=== PATIENT | female | born 1990 | race Caucasian/White ===

== ENCOUNTER → 2016-09-07 | Outpatient (REF) | payer OTHER ==
[~2016-09-07] MED LIST: /MOM400 PO; ACET50TA PO; IBUP-1114 PO; MOTRIN PO; PERC5TAB PO; PRENTAB56 PO; PRENTAB9 PO; TYLE325T5 PO; TYLENOL PO
== END ==
LOC: M SFHCPLAZ 11:11
PROVIDERS: ATTEND Family Medicine
DX: F41.1 Generalized anxiety disorder (principal)

== ENCOUNTER → 2016-10-09 | Outpatient (REF) | payer OTHER ==
[2016-10-09 16:06] LABS: ANION GAP 5 MEQ/L (8-16); BLOOD UREA NITROGEN 17 MG/DL (7-18); CALCIUM LEVEL 8.7 MG/DL (8.5-10.1); CARBON DIOXIDE LEVEL 30 MEQ/L (21-32); CHLORIDE LEVEL 106 MEQ/L (98-107); CREATININE FOR GFR 0.63 MG/DL (0.55-1.02); GLOMERULAR FILTRATION RATE > 60.0 (>60); GLUCOSE, FASTING 81 MG/DL (70-105); POTASSIUM SERUM 3.8 MEQ/L (3.5-5.1); SODIUM LEVEL 141 MEQ/L (136-145)
== END ==
LOC: M SFHCPLAZ 13:38
DX: T88.7XXA Unspecified adverse effect of drug or medicament, initial encounter (principal)

== ENCOUNTER → 2016-10-29 | Outpatient (REF) | payer OTHER ==
[2016-10-29 18:15] LABS: ANION GAP 5 MEQ/L (8-16); BLOOD UREA NITROGEN 14 MG/DL (7-18); CARBON DIOXIDE LEVEL 30 MEQ/L (21-32); CHLORIDE LEVEL 107 MEQ/L (98-107); CREATININE FOR GFR 0.67 MG/DL (0.55-1.02); GLOMERULAR FILTRATION RATE > 60.0 (>60); GLUCOSE, FASTING 78 MG/DL (70-105); POTASSIUM SERUM 3.8 MEQ/L (3.5-5.1); SODIUM LEVEL 142 MEQ/L (136-145)
[2016-11-03 14:18] LABS: HEPATITIS C QUANTITATION HCV Not Detected IU/mL (.)
== END ==
LOC: M SFHCPLAZ 15:44
DX: T88.7XXA Unspecified adverse effect of drug or medicament, initial encounter (principal); A64 Unspecified sexually transmitted disease; X58.XXXA Exposure to other specified factors, initial encounter; Y92.9 Unspecified place or not applicable; Y93.9 Activity, unspecified

== ENCOUNTER 2016-11-23 00:05 | Emergency (ER) | payer OTHER ==
[~2016-11-23] VITALS: Ht 165.1 cm; Wt 55.5 kg
[2016-11-23 00:13] VITALS: BP 115/69
[2016-11-23] MEDS ORDERED: FLUC150T (00:20)
[2016-11-23] MEDS ORDERED: METR1TAB66 (00:20)
[2016-11-23] MEDS ORDERED: DIFL150T PO (00:55)
[2016-11-23] MEDS ORDERED: HYDR-3713 PO (00:55)
[2016-11-23] MEDS ORDERED: NORCO 5/325MG TABLET (BULK FOR ED) PO ONE (01:00)
--- NOTE | 2016-11-26 09:47 | REP ---
Clinical: Trauma. Technique: AP, lateral, bilateral oblique views of the right foot. Findings: There is a transverse nondisplaced Seo fracture at the base of the fifth metatarsal bone. Remainder examination appears normal. Impression: Nondisplaced transverse fracture at the base of the fifth metatarsal bone. Signed by Jason Umana MD 11/23/2016 07:47 A
== END 2016-11-23 01:09 | disposition home or self-care (01) ==
LOC: M ED 01:03
DX: S92.354A Nondisplaced fracture of fifth metatarsal bone, right foot, initial encounter for closed fracture (principal); X50.9XXA Other and unspecified overexertion or strenuous movements or postures, initial encounter; Y92.019 Unspecified place in single-family (private) house as the place of occurrence of the external cause; Y93.01 Activity, walking, marching and hiking; Y99.8 Other external cause status; F17.210 Nicotine dependence, cigarettes, uncomplicated; Z79.899 Other long term (current) drug therapy

== ENCOUNTER 2016-12-03 23:47 | Emergency (ER) | payer OTHER ==
[~2016-12-03] VITALS: Ht 167.6 cm; Wt 54.6 kg
[~2016-12-03 23:47] MED LIST changes: +DIFL150T PO; +FLUC150T; +HYDR-3713 PO; +METR1TAB66
[2016-12-03] MEDS ORDERED: MELO15TA4 (23:59)
[2016-12-03] MEDS ORDERED: TYLE325C PO (23:59)
[2016-12-03] MEDS ORDERED: CITA10TA5 (23:59)
[2016-12-04] MEDS ORDERED: KETOROLAC 60 MG/2 ML VIAL (J1885) IM ONE (02:45)
[2016-12-04] MEDS ORDERED: KETOROLAC 30 MG/ML VIAL (J1885) As Ordered ONE (02:46)
[2016-12-04] MEDS: MORPHINE 2 MG/ML 1ML SYRINGE IM ONE ×2 (03:15→03:44)
[2016-12-04 03:46] VITALS: BP 128/78
--- NOTE | 2016-12-04 07:42 | REP ---
Clinical: Trauma. Technique: AP, lateral views of the right knee. Findings: The osseous structures and joint spaces are intact and normal. There is no evidence for acute fracture or dislocation. No joint effusion is appreciated. Surrounding soft tissues are unremarkable. No subcutaneous emphysema or radiodense foreign body. Impression: Normal examination. No acute fracture or dislocation. Signed by Jason Umana MD 12/04/2016 07:34 A
--- NOTE | 2016-12-04 07:47 | REP ---
Clinical: Trauma Technique: AP, lateral, coned-down views of the lumbar spine. Findings: Three views of the lumbosacral spine demonstrate satisfactory alignment and lordosis without acute fracture / compression injury or subluxation. Chronic spondylolysis at L5 cannot be excluded. Impression: Chronic spondylolysis at L5 cannot be excluded. No acute fracture / compression injury or subluxation. Signed by Jason Umana MD 12/04/2016 07:38 A
--- NOTE | 2016-12-04 08:09 | REP ---
Clinical: Trauma with thoracic pain. Technique: AP, lateral, and swimmers views. Findings: Alignment and kyphosis is maintained. Vertebral bodies intact. No acute fracture / compression injury or subluxation. No degenerative changes. Paravertebral soft tissues are normal. Impression: Normal thoracic spine series. Signed by Jason Umana MD 12/04/2016 08:00 A
== END 2016-12-04 03:48 | disposition home or self-care (01) ==
LOC: M ED 23:47
DX: S89.91XA Unspecified injury of right lower leg, initial encounter (principal); W19.XXXA Unspecified fall, initial encounter; Y92.099 Unspecified place in other non-institutional residence as the place of occurrence of the external cause; Y93.89 Activity, other specified; Y99.9 Unspecified external cause status

== ENCOUNTER → 2016-12-19 | Outpatient (CLI) | payer OTHER ==
[~2016-12-19] MED LIST changes: +CITA10TA5; +MELO15TA4; +SERT-155 PO; +TYLE325C PO
--- NOTE | 2016-12-19 14:50 | REP ---
RIGHT FOOT: Four views of the right foot are performed. There is a nondisplaced fracture at the base of the 5th metatarsal which is unchanged in position compared to prior study of 11/23/2016. No new fracture or dislocation is seen. Signed by Rishi Smith MD 12/19/2016 03:23 P
== END ==
LOC: M RAD 12:34
PROVIDERS: ATTEND Physician Assistant
DX: S92.354D Nondisplaced fracture of fifth metatarsal bone, right foot, subsequent encounter for fracture with routine healing (principal); X58.XXXD Exposure to other specified factors, subsequent encounter; Y99.8 Other external cause status; Y93.9 Activity, unspecified; Y92.9 Unspecified place or not applicable

== ENCOUNTER 2017-03-04 20:59 | Emergency (ER) | payer OTHER ==
[~2017-03-04] VITALS: Ht 165.1 cm; Wt 54.5 kg
[~2017-03-04 20:59] MED LIST changes: -SERT-155 PO
[2017-03-04] MEDS ORDERED: SERT-155 PO (21:23)
[2017-03-04] MEDS ORDERED: IBUP-1114 PO (21:23)
[2017-03-05] MEDS ORDERED: NORCO 5/325MG TABLET (BULK FOR ED) PO ONE
[2017-03-05 00:19] VITALS: BP 106/57
--- NOTE | 2017-03-05 08:08 | REP ---
Left great toe four views : There is no fracture or dislocation. Mineralization and joint spaces are normal. There are no calcifications or foreign bodies. Impression: Negative left great toe . Signed by Rishi Virk MD 03/05/2017 07:59 A
== END 2017-03-05 00:20 | disposition home or self-care (01) ==
LOC: M ED 20:59
DX: S90.412A Abrasion, left great toe, initial encounter (principal); X58.XXXA Exposure to other specified factors, initial encounter; Y92.89 Other specified places as the place of occurrence of the external cause; Y93.89 Activity, other specified; Y99.8 Other external cause status; Z79.899 Other long term (current) drug therapy

== ENCOUNTER → 2017-04-27 | Outpatient (REF) | payer OTHER ==
[~2017-04-27] MED LIST changes: +GABA-279 PO; +NAPR500T PO; +SERT-155 PO
== END ==
LOC: M LAB REF 15:21
PROVIDERS: ATTEND Physician Assistant
DX: J02.9 Acute pharyngitis, unspecified (principal)

== ENCOUNTER → 2017-04-29 | Outpatient (CLI) | payer OTHER ==
--- NOTE | 2017-04-29 13:23 | REP ---
Clinical: Cervicalgia . Technique: AP, lateral, flexion/extension, bilateral oblique, and open-mouth views. Findings: Alignment and lordosis is maintained. There is no evidence for acute fracture / compression injury or subluxation. No significant degenerative changes are appreciated. Oblique views demonstrate patent neural foramen. Open mouth view demonstrates normal C1-C2 articulation and odontoid process. Impression: Normal cervical spine series. Signed by Jason Umana MD 04/29/2017 10:46 A
== END ==
LOC: M LRY 09:44
PROVIDERS: ATTEND Physician Assistant
DX: M54.2 Cervicalgia (principal)

== ENCOUNTER 2017-05-04 19:33 | Emergency (ER) | payer OTHER ==
[~2017-05-04] VITALS: Ht 165.1 cm; Wt 59.0 kg
[~2017-05-04 19:33] MED LIST changes: -GABA-279 PO; -NAPR500T PO
[2017-05-04] MEDS ORDERED: GABAPENTIN 100 MG CAP PO ONE (22:15)
[2017-05-04] MEDS ORDERED: NAPROXEN 250 MG TAB PO ONE (22:15)
--- NOTE | 2017-05-04 22:50 | REPUSA ---
Clinical statement: Pain, swelling. Findings: Venous Doppler imaging of the left upper extremity was performed. The internal jugular vein compresses normally and demonstrates normal color Doppler flow. Normal venous wave forms are seen wi thin the subclavian vein. The axillary, basilic and brachial veins compress normally and demonstrate normal color Doppler flow. Normal augmentation is seen. Impression: No evidence of deep vein thrombosis in the left upper extremity.
[2017-05-04] MEDS ORDERED: GABA-279 PO (23:13)
[2017-05-04] MEDS ORDERED: NAPR500T PO (23:13)
[2017-05-04 23:35] VITALS: BP 111/76
--- NOTE | 2017-05-05 05:45 | REP ---
BILATERAL HAND: CLINICAL: Pain. TECHNIQUE: AP, lateral, bilateral oblique views of the right and left hand. FINDINGS: No obvious acute fracture or dislocation. Skeletal structures, joint spaces and surrounding soft tissues appear relatively symmetric and normal bilaterally. No significant arthritic degenerative changes are appreciated. IMPRESSION: Normal bilateral hand radiograph series. Signed by Jason Umana MD 05/10/2017 12:05 A
== END 2017-05-04 23:40 | disposition home or self-care (01) ==
LOC: M ED 19:33
DX: G90.512 Complex regional pain syndrome I of left upper limb (principal); F17.210 Nicotine dependence, cigarettes, uncomplicated

== ENCOUNTER → 2017-06-17 | Outpatient (REF) | payer OTHER | LOC: M LAB REF 09:39 | DX: R82.79 Other abnormal findings on microbiological examination of urine (principal) ==

== ENCOUNTER → 2017-06-25 | Outpatient (REF) | payer OTHER ==
[2017-06-25 21:29] LABS: MEAN CORPUSCULAR HEMOGLOBIN 30.4 pg (27.0-33.0); MEAN CORPUSCULAR HGB CONC 34.2 g/dl (32.0-36.5); MEAN CORPUSCULAR VOLUME 88.8 fl (80.0-96.0); PLATELET COUNT, AUTOMATED 205 10^3/uL (150-450); RED BLOOD COUNT 4.28 10^6/uL (4.00-5.40); RED CELL DISTRIBUTION WIDTH 12.4 % (11.5-14.5); WHITE BLOOD COUNT 6.3 10^3/uL (4.0-10.0)
[2017-06-25 21:41] LABS: ALBUMIN/GLOBULIN RATIO 1.33 (1.00-1.93); ALKALINE PHOSPHATASE 67 U/L (45-117); ALT/SGPT 24 U/L (12-78); ANION GAP 5 MEQ/L (8-16); AST/SGOT 12 U/L (7-37); BILIRUBIN,TOTAL 1.4 MG/DL (0.2-1.0); BLOOD UREA NITROGEN 15 MG/DL (7-18); CALCIUM LEVEL 8.6 MG/DL (8.5-10.1); CARBON DIOXIDE LEVEL 29 MEQ/L (21-32); CHLORIDE LEVEL 107 MEQ/L (98-107); CREATININE FOR GFR 0.59 MG/DL (0.55-1.02); GLOMERULAR FILTRATION RATE > 60.0 (>60); GLUCOSE, FASTING 75 MG/DL (70-100); HCG, SERUM QUANTITATIVE < 1.0 MIU/ML; POTASSIUM SERUM 3.9 MEQ/L (3.5-5.1); SODIUM LEVEL 141 MEQ/L (136-145)
== END ==
LOC: M SFHCLERA 12:34
DX: R31.9 Hematuria, unspecified (principal); R93.0 Abnormal findings on diagnostic imaging of skull and head, not elsewhere classified

== ENCOUNTER → 2017-06-25 | Outpatient (CLI) | payer OTHER | LOC: M LRY 12:44 | DX: R31.9 Hematuria, unspecified (principal) | CPT/HCPCS: 74018 ==

== ENCOUNTER 2017-06-27 07:24 | Emergency (ER) | payer OTHER ==
[2017-06-27 08:19] LABS: KETONE, URINE AUTO RFX NEGATIVE (NEGATIVE); LEUKOCYTE ESTERASE UR AUTO RFX TRACE (NEGATIVE); MUCUS, URINE RFX SMALL (NEGATIVE); NITRITE, URINE AUTO RFX NEGATIVE (NEGATIVE); RBC, URINE AUTO RFX 2 /HPF (0-3); SPECIFIC GRAVITY UR AUTO RFX 1.008 (1.002-1.035); SQUAM EPITHELIAL CELL UR AURFX 0 /HPF (0-6); WBC, URINE AUTO RFX 1 /HPF (0-3)
[2017-06-27] MEDS: KETOROLAC 60 MG/2 ML VIAL (J1885) IM (08:34)
== END 2017-06-27 09:51 | disposition home or self-care (01) ==
LOC: M ED 07:24
DX: G89.29 Other chronic pain (principal); M54.5 Low back pain; F41.9 Anxiety disorder, unspecified
CPT/HCPCS: J1885

== ENCOUNTER → 2017-07-13 | Outpatient (CLI) | payer OTHER | LOC: M RAD 10:34 | DX: I67.1 Cerebral aneurysm, nonruptured (principal) | CPT/HCPCS: 70551 ==

== ENCOUNTER → 2017-07-26 | Outpatient (CLI) | payer OTHER ==
[2017-07-26 19:05] LABS: FREE T4 0.92 NG/DL (0.76-1.46)
[2017-07-26 19:15] LABS: FOLLICLE STIMULATING HORMONE 4.5 mIU/mL; LUTEINIZING HORMONE 9.3 mIU/mL; PROLACTIN 5.3 NG/ML
[2017-07-26 19:15] LABS: PROGESTERONE 22.7 NG/ML
[2017-07-29 00:07] LABS: TESTOSTERONE FREE (DIRECT) 1.1 pg/mL (0.0-4.2)
== END ==
LOC: M SMT 15:54
DX: N93.8 Other specified abnormal uterine and vaginal bleeding (principal)
CPT/HCPCS: 83001

== ENCOUNTER 2017-09-24 09:42 | Day surgery (SDC) | payer OTHER ==
[2017-09-24] MEDS ORDERED: GLYCOPYRROLATE INJ 0.2 MG/ML 2 ML VIAL As Ordered (09:45)
[2017-09-24] MEDS ORDERED: LIDOCAINE 2% INJ 100 MG/5 ML SDV (FOR ANES.) As Ordered (09:45)
[2017-09-24] MEDS ORDERED: KETOROLAC 60 MG/2 ML VIAL (J1885) As Ordered (09:45)
[2017-09-24] MEDS ORDERED: PROPOFOL 200 MG/20 ML VIAL As Ordered (09:45)
[2017-09-24] MEDS ORDERED: ONDANSETRON 4MG/2ML VIAL (J2405) As Ordered (09:45)
[2017-09-24] MEDS ORDERED: dexameTHASONE 4 MG/ML 1ML VIAL (J1100) As Ordered (09:45)
[2017-09-24] MEDS ORDERED: ROCURONIUM BROMIDE 50 MG/5 ML VIAL As Ordered (09:45)
[2017-09-24] MEDS ORDERED: NEOSTIGMINE 10 MG/10 ML VIAL (J2710) As Ordered (09:45)
[2017-09-24] MEDS ORDERED: HYDROmorphone HCL 2 MG/ML 1ML VIAL (J1170) As Ordered (09:46)
[2017-09-24] MEDS ORDERED: fentaNYL 100 MCG/2 ML INJECTION (J3010) As Ordered (09:46)
[2017-09-24] MEDS ORDERED: MIDAZOLAM INJ 2 MG/2 ML VIAL (J2250) As Ordered (09:46)
[2017-09-24] MEDS ORDERED: LIDOCAINE 1% MDV 20ML VIAL SQ (10:00)
[2017-09-24 10:16] LABS: HEMATOCRIT 39.2 % (36.0-47.0); HEMOGLOBIN 13.5 g/dl (12.0-15.5); MEAN CORPUSCULAR HEMOGLOBIN 30.1 pg (27.0-33.0); MEAN CORPUSCULAR HGB CONC 34.4 g/dl (32.0-36.5); MEAN CORPUSCULAR VOLUME 87.5 fl (80.0-96.0); PLATELET COUNT, AUTOMATED 161 10^3/uL (150-450); RED BLOOD COUNT 4.48 10^6/uL (4.00-5.40); RED CELL DISTRIBUTION WIDTH 12.4 % (11.5-14.5); WHITE BLOOD COUNT 6.8 10^3/uL (4.0-10.0)
[2017-09-24 10:22] LABS: CONTROL LINE UCG INT CTR LINE PRESENT; URINE PREG TEST NEGATIVE (NEGATIVE)
[2017-09-24] MEDS: LR 1,000 ML IV ×3 (10:31→18:45)
[2017-09-24] MEDS: BUPIVACAINE HCL 0.25% 10 ML VIAL As Ordered (14:33)
[2017-09-24] MEDS: CEFAZOLIN SOD 1 GM in APPROPRIATE DILUENT 1 EA IV (14:54)
[2017-09-24] MEDS: METHYLENE BLUE 0.5% (5MG/ML) 10 ML AMP (PROVAYBLUE)(Q9968 PER 1MG) As Ordered (15:55)
[2017-09-24] MEDS: ONDANSETRON 4MG/2ML VIAL (J2405) IV (16:50)
[2017-09-24] MEDS: fentaNYL 100 MCG/2 ML INJECTION (J3010) IV ×4 (16:50→17:13)
[2017-09-24] MEDS ORDERED: PERCOCET 5MG/325MG TAB PO (17:00)
[2017-09-24] MEDS ORDERED: METOCLOPRAMIDE INJ 10MG/2ML VIAL (J2765) As Ordered (17:32)
[2017-09-24] MEDS: METOCLOPRAMIDE INJ 10MG/2ML VIAL (J2765) IV (17:45)
[2017-09-24] MEDS: HYDROmorphone HCL 1 MG/ML SYRINGE (J1170) IV ×2 (17:55→18:00)
[2017-09-24] MEDS: MORPHINE 4 MG/ML 1ML VIAL/SYRINGE (J2270) IV (18:45)
[2017-09-24] MEDS: DOCUSATE SODIUM 100 MG CAP PO (21:03)
[2017-09-24] MEDS: KETOROLAC 30 MG/ML VIAL (J1885) IV (21:04)
[2017-09-24] MEDS: PERCOCET 5MG/325MG TAB PO (22:00)
[2017-09-25] MEDS: MORPHINE 4 MG/ML 1ML VIAL/SYRINGE (J2270) IV ×3 (01:29→16:27)
[2017-09-25] MEDS: LR 1,000 ML IV ×2 (01:41→22:30)
[2017-09-25] MEDS: PERCOCET 5MG/325MG TAB PO ×4 (02:21→22:47)
[2017-09-25] MEDS: KETOROLAC 30 MG/ML VIAL (J1885) IV (05:25)
[2017-09-25] MEDS: DOCUSATE SODIUM 100 MG CAP PO ×2 (07:26→21:00)
[2017-09-25] MEDS ORDERED: SIMETHICONE 80 MG CHEW TAB PO (08:45)
[2017-09-25] MEDS: SIMETHICONE 80 MG CHEW TAB PO ×2 (09:09→14:37)
[2017-09-25] MEDS: ONDANSETRON 4MG/2ML VIAL (J2405) IV ×2 (09:41→16:21)
[2017-09-25 09:54] LABS: HEMATOCRIT 22.6 % (36.0-47.0); MEAN CORPUSCULAR HEMOGLOBIN 30.9 pg (27.0-33.0); MEAN CORPUSCULAR VOLUME 88.3 fl (80.0-96.0); PLATELET COUNT, AUTOMATED 152 10^3/uL (150-450); RED BLOOD COUNT 2.56 10^6/uL (4.00-5.40); RED CELL DISTRIBUTION WIDTH 12.4 % (11.5-14.5); WHITE BLOOD COUNT 16.1 10^3/uL (4.0-10.0)
[2017-09-25 10:29] LABS: HEMOGLOBIN 7.9 g/dl (12.0-15.5)
[2017-09-25] MEDS ORDERED: IBUPROFEN 800 MG TAB PO (11:30)
[2017-09-25] MEDS: diphenhydrAMINE 25 MG CAP PO (12:01)
[2017-09-25] MEDS: NS 1,000 ML IV (14:05)
[2017-09-25 17:48] LABS: IMMEDIATE SPIN CROSSMATCH 1 2
[2017-09-25 19:22] LABS: HEMATOCRIT 24.7 % (36.0-47.0); HEMOGLOBIN 8.8 g/dl (12.0-15.5); MEAN CORPUSCULAR HEMOGLOBIN 31.3 pg (27.0-33.0); MEAN CORPUSCULAR HGB CONC 35.6 g/dl (32.0-36.5); MEAN CORPUSCULAR VOLUME 87.9 fl (80.0-96.0); PLATELET COUNT, AUTOMATED 108 10^3/uL (150-450); RED BLOOD COUNT 2.81 10^6/uL (4.00-5.40); RED CELL DISTRIBUTION WIDTH 13.3 % (11.5-14.5); WHITE BLOOD COUNT 11.3 10^3/uL (4.0-10.0)
[2017-09-25 19:31] LABS: INR 1.22; PARTIAL THROMBOPLASTIN TIME 25.7 SECONDS (26.8-37.9); PROTHROMBIN TIME 15.7 SECONDS (12.4-14.5)
[2017-09-25 19:32] LABS: FIBRINOGEN 173 MG/DL (221-452)
[2017-09-25] MEDS: ceFAZolin 1GM INJ (J0690 PER 500MG) As Ordered (20:45)
[2017-09-25] MEDS: BUPIVACAINE HCL 0.25% 30 ML VIAL As Ordered (21:02)
[2017-09-25] MEDS ORDERED: MIDAZOLAM INJ 2 MG/2 ML VIAL (J2250) As Ordered (21:18)
[2017-09-25] MEDS ORDERED: KETOROLAC 60 MG/2 ML VIAL (J1885) As Ordered (21:18)
[2017-09-25] MEDS ORDERED: LIDOCAINE 2% INJ 100 MG/5 ML SDV (FOR ANES.) As Ordered (21:18)
[2017-09-25] MEDS ORDERED: PROPOFOL 200 MG/20 ML VIAL As Ordered (21:18)
[2017-09-25] MEDS ORDERED: fentaNYL 100 MCG/2 ML INJECTION (J3010) As Ordered ×2 (21:18→22:28)
[2017-09-25] MEDS ORDERED: ROCURONIUM BROMIDE 50 MG/5 ML VIAL As Ordered (21:18)
[2017-09-25] MEDS ORDERED: ONDANSETRON 4MG/2ML VIAL (J2405) As Ordered ×2 (21:18→22:50)
[2017-09-25] MEDS ORDERED: dexameTHASONE 4 MG/ML 1ML VIAL (J1100) As Ordered (21:18)
[2017-09-25] MEDS ORDERED: SUGAMMADEX SODIUM 500 MG/5 ML VIAL (BRIDION) As Ordered (21:18)
[2017-09-25] MEDS ORDERED: MEPERIDINE INJ 25 MG/ML VIAL (J2175) As Ordered (22:25)
[2017-09-25] MEDS: MEPERIDINE INJ 25 MG/ML VIAL (J2175) IV ×2 (22:25→22:37)
[2017-09-25] MEDS: fentaNYL 100 MCG/2 ML INJECTION (J3010) IV ×4 (22:28→22:49)
[2017-09-25] MEDS ORDERED: ONDANSETRON 4MG/2ML VIAL (J2405) IV ×2 (22:30→23:15)
[2017-09-25] MEDS ORDERED: MORPHINE 10 MG/ML 1ML VIAL (J2270) IV (22:30)
[2017-09-25 22:44] LABS: HEMATOCRIT 24.7 % (36.0-47.0); HEMOGLOBIN 8.5 g/dl (12.0-15.5); MEAN CORPUSCULAR HEMOGLOBIN 31.3 pg (27.0-33.0); MEAN CORPUSCULAR HGB CONC 34.4 g/dl (32.0-36.5); MEAN CORPUSCULAR VOLUME 90.8 fl (80.0-96.0); RED BLOOD COUNT 2.72 10^6/uL (4.00-5.40); RED CELL DISTRIBUTION WIDTH 13.5 % (11.5-14.5); WHITE BLOOD COUNT 9.8 10^3/uL (4.0-10.0)
[2017-09-25 22:45] LABS: PLATELET COUNT, AUTOMATED 93 10^3/uL (150-450)
[2017-09-25 22:46] LABS: IMMATURE PLATELET FRACTION % 5.8 % (0.0-9.6)
[2017-09-25] MEDS ORDERED: PERCOCET 5MG/325MG TAB As Ordered (22:47)
[2017-09-25] MEDS ORDERED: PERCOCET 5MG/325MG TAB PO (23:15)
[2017-09-26] MEDS: LR 1,000 ML IV ×4 (00:01→23:15)
[2017-09-26] MEDS: KETOROLAC 30 MG/ML VIAL (J1885) IV (01:08)
[2017-09-26] MEDS: PERCOCET 5MG/325MG TAB PO ×4 (04:09→16:21)
[2017-09-26 06:36] LABS: HEMATOCRIT 22.2 % (36.0-47.0); HEMOGLOBIN 7.6 g/dl (12.0-15.5); MEAN CORPUSCULAR HGB CONC 34.2 g/dl (32.0-36.5); MEAN CORPUSCULAR VOLUME 90.6 fl (80.0-96.0); RED BLOOD COUNT 2.45 10^6/uL (4.00-5.40); RED CELL DISTRIBUTION WIDTH 13.5 % (11.5-14.5); WHITE BLOOD COUNT 8.8 10^3/uL (4.0-10.0)
[2017-09-26] MEDS: MORPHINE 4 MG/ML 1ML VIAL/SYRINGE (J2270) IV ×3 (06:43→19:38)
[2017-09-26 06:48] LABS: PLATELET COUNT, AUTOMATED 88 10^3/uL (150-450)
[2017-09-26 06:55] LABS: ALBUMIN 2.6 GM/DL (3.2-5.2); ALBUMIN/GLOBULIN RATIO 1.18 (1.00-1.93); ALKALINE PHOSPHATASE 40 U/L (45-117); ALT/SGPT 11 U/L (12-78); ANION GAP 4 MEQ/L (8-16); AST/SGOT 13 U/L (7-37); BILIRUBIN,TOTAL 2.6 MG/DL (0.2-1.0); BLOOD UREA NITROGEN 10 MG/DL (7-18); CALCIUM LEVEL 7.5 MG/DL (8.5-10.1); CARBON DIOXIDE LEVEL 29 MEQ/L (21-32); CHLORIDE LEVEL 108 MEQ/L (98-107); CREATININE FOR GFR 0.58 MG/DL (0.55-1.30); GLOMERULAR FILTRATION RATE > 60.0 (>60); GLUCOSE, FASTING 94 MG/DL (70-100); SODIUM LEVEL 141 MEQ/L (136-145); TOTAL PROTEIN 4.8 GM/DL (6.4-8.2)
[2017-09-26] MEDS: SIMETHICONE 80 MG CHEW TAB PO ×2 (08:20→16:19)
[2017-09-26] MEDS: DOCUSATE SODIUM 100 MG CAP PO ×2 (08:22→19:39)
[2017-09-26] MEDS ORDERED: NS 1,000 ML IV (09:09)
[2017-09-26 10:07] LABS: IMMEDIATE SPIN CROSSMATCH 1 1
[2017-09-26] MEDS: IBUPROFEN 800 MG TAB PO ×2 (11:03→19:39)
[2017-09-26] MEDS: ALPRAZolam 0.25 MG TAB PO ×2 (12:34→20:25)
[2017-09-27] MEDS: PERCOCET 5MG/325MG TAB PO ×3 (00:52→09:55)
[2017-09-27 06:51] LABS: HEMATOCRIT 23.3 % (36.0-47.0); HEMOGLOBIN 7.9 g/dl (12.0-15.5); MEAN CORPUSCULAR HEMOGLOBIN 31.2 pg (27.0-33.0); MEAN CORPUSCULAR HGB CONC 33.9 g/dl (32.0-36.5); MEAN CORPUSCULAR VOLUME 92.1 fl (80.0-96.0); RED BLOOD COUNT 2.53 10^6/uL (4.00-5.40); RED CELL DISTRIBUTION WIDTH 13.8 % (11.5-14.5)
[2017-09-27 06:54] LABS: PLATELET COUNT, AUTOMATED 80 10^3/uL (150-450)
[2017-09-27] MEDS: LR 1,000 ML IV (07:15)
[2017-09-27] MEDS: DOCUSATE SODIUM 100 MG CAP PO (08:35)
[2017-09-27] MEDS: IBUPROFEN 800 MG TAB PO (08:36)
== END 2017-09-27 10:30 | disposition home or self-care (01) ==
LOC: M SDC 09:42 → M PED 09-25 23:55 → M SDC 09-27 10:30 → M OBS 18:30
DX: R10.2 Pelvic and perineal pain (principal); N94.6 Dysmenorrhea, unspecified; N72 Inflammatory disease of cervix uteri; K66.1 Hemoperitoneum; F17.210 Nicotine dependence, cigarettes, uncomplicated
CPT/HCPCS: 58571

== ENCOUNTER → 2017-09-28 | Outpatient (CLI) | payer OTHER ==
[2017-09-28 11:20] LABS: HEMOGLOBIN 8.6 g/dl (12.0-15.5); MEAN CORPUSCULAR HEMOGLOBIN 30.8 pg (27.0-33.0); MEAN CORPUSCULAR HGB CONC 33.1 g/dl (32.0-36.5); MEAN CORPUSCULAR VOLUME 93.2 fl (80.0-96.0); PLATELET COUNT, AUTOMATED 109 10^3/uL (150-450); RED BLOOD COUNT 2.79 10^6/uL (4.00-5.40); RED CELL DISTRIBUTION WIDTH 13.8 % (11.5-14.5); WHITE BLOOD COUNT 6.8 10^3/uL (4.0-10.0)
== END ==
LOC: M SMT 09:23
DX: D64.9 Anemia, unspecified (principal)
CPT/HCPCS: 85027

== ENCOUNTER → 2017-10-04 | Outpatient (REF) | payer OTHER | LOC: M LAB REF 16:57 | DX: R30.0 Dysuria (principal) ==

== ENCOUNTER → 2018-03-24 | Outpatient (CLI) | payer OTHER | LOC: M RAD 11:12 | DX: N83.292 Other ovarian cyst, left side (principal) | CPT/HCPCS: 76856 ==

== ENCOUNTER 2018-03-31 00:53 | Emergency (ER) | payer OTHER ==
[2018-03-31] MEDS: NS 1,000 ML IV (01:45)
[2018-03-31 01:57] LABS: BASO % 0.5 % (0.0-1.0); EOS # 0.3 10^3/uL (0.0-0.50); HEMATOCRIT 35.3 % (36.0-47.0); HEMOGLOBIN 12.2 g/dl (12.0-15.5); IMMATURE GRANULOCYTE % 0.3 % (0-3.0); MEAN CORPUSCULAR HEMOGLOBIN 30.9 pg (27.0-33.0); MEAN CORPUSCULAR HGB CONC 34.6 g/dl (32.0-36.5); MEAN CORPUSCULAR VOLUME 89.4 fl (80.0-96.0); MONO # 0.8 10^3/uL (0.0-0.8); MONO % 10.9 % (0.0-5.0); NEUTROPHILS # 3.3 10^3/uL (1.8-7.7); NEUTROPHILS % 44.3 % (36.0-66.0); PLATELET COUNT, AUTOMATED 171 10^3/uL (150-450); RED BLOOD COUNT 3.95 10^6/uL (4.00-5.40); RED CELL DISTRIBUTION WIDTH 12.3 % (11.5-14.5); WHITE BLOOD COUNT 7.4 10^3/uL (4.0-10.0)
[2018-03-31] MEDS: ONDANSETRON 4MG/2ML VIAL (J2405) IV (01:57)
[2018-03-31] MEDS: MORPHINE 4 MG/ML 1ML VIAL/SYRINGE (J2270) IV ×2 (02:05→05:14)
[2018-03-31] MEDS: GASTROGRAFIN SOLUTION 30ML PO ×2 (02:12→02:38)
[2018-03-31 02:15] LABS: KETONE, URINE AUTO RFX NEGATIVE (NEGATIVE); LEUKOCYTE ESTERASE UR AUTO RFX NEGATIVE (NEGATIVE); MUCUS, URINE RFX LARGE (NEGATIVE); NITRITE, URINE AUTO RFX NEGATIVE (NEGATIVE); RBC, URINE AUTO RFX 3 /HPF (0-3); SPECIFIC GRAVITY UR AUTO RFX 1.026 (1.002-1.035); SQUAM EPITHELIAL CELL UR AURFX 6 /HPF (0-6); WBC, URINE AUTO RFX 2 /HPF (0-3)
[2018-03-31 02:22] LABS: ALBUMIN 3.5 GM/DL (3.2-5.2); ALBUMIN/GLOBULIN RATIO 1.46 (1.00-1.93); ALKALINE PHOSPHATASE 64 U/L (45-117); ALT/SGPT 30 U/L (12-78); ANION GAP 9 MEQ/L (8-16); AST/SGOT 18 U/L (7-37); BILIRUBIN,DIRECT 0.2 MG/DL (0.0-0.2); BILIRUBIN,TOTAL 0.6 MG/DL (0.2-1.0); BLOOD UREA NITROGEN 13 MG/DL (7-18); CALCIUM LEVEL 8.4 MG/DL (8.5-10.1); CARBON DIOXIDE LEVEL 28 MEQ/L (21-32); CHLORIDE LEVEL 107 MEQ/L (98-107); CREATININE FOR GFR 0.63 MG/DL (0.55-1.30); GLOMERULAR FILTRATION RATE > 60.0 (>60); GLUCOSE, FASTING 77 MG/DL (70-100); LIPASE 105 U/L (73-393); POTASSIUM SERUM 3.6 MEQ/L (3.5-5.1); SODIUM LEVEL 144 MEQ/L (136-145); TOTAL PROTEIN 5.9 GM/DL (6.4-8.2)
[2018-03-31] MEDS ORDERED: ISOVUE-370 76% 100ML VIAL (Q9967) As Ordered (03:06)
[2018-03-31 03:52] LABS: CHLAMYDIA DNA AMPLIFICATION NEGATIVE (NEGATIVE); GC DNA AMPLIFICATION NEGATIVE (NEGATIVE)
== END 2018-03-31 05:26 | disposition home or self-care (01) ==
LOC: M ED 00:53
DX: R10.30 Lower abdominal pain, unspecified (principal); N80.9 Endometriosis, unspecified; Z88.8 Allergy status to other drugs, medicaments and biological substances; F17.210 Nicotine dependence, cigarettes, uncomplicated
CPT/HCPCS: J2270

== ENCOUNTER → 2018-04-06 | Outpatient (REF) | payer OTHER ==
[2018-04-06 14:30] LABS: BASO # 0.1 10^3/uL (0.0-0.2); BASO % 0.8 % (0.0-1.0); EOS # 0.3 10^3/uL (0.0-0.50); EOS % 5.2 % (0.0-3.0); HEMATOCRIT 39.1 % (36.0-47.0); HEMOGLOBIN 13.4 g/dl (12.0-15.5); IMMATURE GRANULOCYTE % 0.2 % (0-3.0); LYMPH # 2.1 10^3/uL (1.5-6.5); LYMPH % 34.3 % (24.0-44.0); MEAN CORPUSCULAR HEMOGLOBIN 30.5 pg (27.0-33.0); MEAN CORPUSCULAR HGB CONC 34.3 g/dl (32.0-36.5); MEAN CORPUSCULAR VOLUME 89.1 fl (80.0-96.0); MONO # 0.8 10^3/uL (0.0-0.8); MONO % 13.4 % (0.0-5.0); NEUTROPHILS # 2.9 10^3/uL (1.8-7.7); NEUTROPHILS % 46.1 % (36.0-66.0); PLATELET COUNT, AUTOMATED 191 10^3/uL (150-450); RED BLOOD COUNT 4.39 10^6/uL (4.00-5.40); RED CELL DISTRIBUTION WIDTH 12.4 % (11.5-14.5); WHITE BLOOD COUNT 6.2 10^3/uL (4.0-10.0)
[2018-04-06 14:47] LABS: ALBUMIN 3.9 GM/DL (3.2-5.2); ALKALINE PHOSPHATASE 57 U/L (45-117); ALT/SGPT 28 U/L (12-78); ANION GAP 6 MEQ/L (8-16); AST/SGOT 12 U/L (7-37); BILIRUBIN,TOTAL 1.5 MG/DL (0.2-1.0); BLOOD UREA NITROGEN 16 MG/DL (7-18); CALCIUM LEVEL 8.8 MG/DL (8.5-10.1); CARBON DIOXIDE LEVEL 29 MEQ/L (21-32); CHLORIDE LEVEL 106 MEQ/L (98-107); CHOLESTEROL LEVEL 92 MG/DL (<200); CREATININE FOR GFR 0.71 MG/DL (0.55-1.30); FERRITIN 12 NG/ML (8-252); FREE T4 0.87 NG/DL (0.76-1.46); GLOMERULAR FILTRATION RATE > 60.0 (>60); GLUCOSE, FASTING 84 MG/DL (70-100); HDL CHOLESTEROL 44 MG/DL (>40); IRON (FE) 156 UG/DL (50-170); LDL CHOLESTEROL 35 MG/DL (<100); NON-HDL-C 48 MG/DL; PERCENT SATURATION 48.8 % (13.2-45.0); POTASSIUM SERUM 4.1 MEQ/L (3.5-5.1); SODIUM LEVEL 141 MEQ/L (136-145); TOTAL IRON BINDING CAPACITY 320 UG/DL (250-450); TOTAL PROTEIN 6.9 GM/DL (6.4-8.2); TRIGLYCERIDES LEVEL 66 MG/DL (<150)
[2018-04-06 14:48] LABS: TOTAL 25(OH) VITAMIN D 24.1 NG/ML (30.0-100.0)
== END ==
LOC: M SFHCSACK 09:17
DX: R53.83 Other fatigue (principal); Z13.220 Encounter for screening for lipoid disorders

== ENCOUNTER 2018-05-12 02:39 | Emergency (ER) | payer OTHER ==
[2018-05-12] MEDS: KETOROLAC 60 MG/2 ML VIAL (J1885) IM (03:25)
== END 2018-05-12 03:35 | disposition home or self-care (01) ==
LOC: M ED 03:35
DX: S43.52XA Sprain of left acromioclavicular joint, initial encounter (principal); X50.3XXA Overexertion from repetitive movements, initial encounter; Y92.099 Unspecified place in other non-institutional residence as the place of occurrence of the external cause; Y93.H1 Activity, digging, shoveling and raking; Y99.9 Unspecified external cause status; Z88.8 Allergy status to other drugs, medicaments and biological substances
CPT/HCPCS: J1885

== ENCOUNTER → 2018-05-13 | Outpatient (CLI) | payer OTHER | LOC: M WUC 11:37 | DX: M25.512 Pain in left shoulder (principal) | CPT/HCPCS: 73030 ==

== ENCOUNTER → 2018-08-12 | Outpatient (REF) | payer OTHER ==
[~2018-08-12] MED LIST changes: -ACET50TA PO; +ADVI200C5 PO; +ALPR0.25 PO; +GABA-1171 PO; +KETO10TAB PO; +MAPA500T2 PO; +MELO15TA28; -MELO15TA4; +METR-201; -METR1TAB66; +MOBI4TAB PO; +NAPR-50 PO; +OXYC1TAB23 PO; +PERC5TAB12 PO; +XANA0.25 PO
== END ==
LOC: M SFHCSACK 08:03
PROVIDERS: ATTEND Physician Assistant
DX: G43.009 Migraine without aura, not intractable, without status migrainosus (principal); E55.9 Vitamin D deficiency, unspecified; Z53.9 Procedure and treatment not carried out, unspecified reason

== ENCOUNTER → 2018-08-27 | Outpatient (CLI) | payer OTHER ==
[~2018-08-27] MED LIST changes: -/MOM400 PO; +MILK10SU PO
--- NOTE | 2018-08-29 08:56 | REP ---
MRA BRAIN WITHOUT CONTRAST: HISTORY: Aneurysm. 3D [id number] MR angiography was performed at the level of the [place]. Comparison 07/13/2017. A small aneurysm is arising from the inferior cavernous left internal carotid artery. The aneurysm measures 2 x 1.5 mm and is unchanged in size compared to the previous study. The aneurysm projects posterior and inferior from the cavernous left internal carotid artery. There is no other aneurysm or arteriovenous malformation. Major intracranial vessels are patent. The vertebral arteries are equal in size. 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 Electronically Signed by Jeffrey He MD 08/29/2018 09:12 A
== END ==
LOC: M RAD 12:01
PROVIDERS: ATTEND Physician Assistant
DX: I72.0 Aneurysm of carotid artery (principal); G43.711 Chronic migraine without aura, intractable, with status migrainosus

== ENCOUNTER → 2018-11-12 | Outpatient (CLI) | payer OTHER ==
[~2018-11-12] MED LIST changes: -METR-201; +METR-265; -NAPR-50 PO; +NAPR-837 PO
--- NOTE | 2018-11-13 07:17 | REP ---
MRI CERVICAL SPINE WITHOUT CONTRAST: TECHNIQUE: Multiple sequences obtained in the sagittal and axial planes. Cervical vertebral bodies are normal in height and are well aligned. There is a small hemangioma in the C3 vertebral body. Otherwise bone marrow signal is homogeneous and unremarkable. There is mild loss of water signal and disc degeneration at C4-5 and C5-6 without significant disc space narrowing. There is slight diffuse disc bulging at both of these levels. No disc herniation is seen at any level. There is no evidence of spinal stenosis of neural foraminal narrowing at any level. Cervical cord demonstrates no abnormal signal. I see no other significant finding. IMPRESSION: Mild degenerative disc change at C4-5 and C5-6 without significant disc space narrowing. There is slight diffuse disc bulging at both of these levels. No significant disc herniation at any level. No spinal stenosis or neural foraminal narrowing. Electronically Signed by Rishi Smith MD 11/13/2018 04:14 P
== END ==
LOC: M RAD 13:56
PROVIDERS: ATTEND Pain Medicine Interventional Pain Medicine
DX: M47.812 Spondylosis without myelopathy or radiculopathy, cervical region (principal); M50.221 Other cervical disc displacement at C4-C5 level; M50.222 Other cervical disc displacement at C5-C6 level; M50.322 Other cervical disc degeneration at C5-C6 level; M50.321 Other cervical disc degeneration at C4-C5 level

== ENCOUNTER 2018-12-30 03:45 | Emergency (ER) | payer OTHER ==
[~2018-12-30] VITALS: Ht 165.1 cm; Wt 54.5 kg
[~2018-12-30 03:45] MED LIST changes: -SERT-155 PO; +SERT50TA29 PO
[2018-12-30] MEDS ORDERED: TRAM50TA2 (03:58)
[2018-12-30 04:28] LABS: BASO # 0.1 10^3/uL (0.0-0.2); BASO % 0.7 % (0.0-1.0); EOS # 0.3 10^3/uL (0.0-0.50); EOS % 4.8 % (0.0-3.0); HEMATOCRIT 37.5 % (36.0-47.0); HEMOGLOBIN 12.9 g/dl (12.0-15.5); LYMPH # 2.9 10^3/uL (1.5-6.5); LYMPH % 43.7 % (24.0-44.0); MEAN CORPUSCULAR HEMOGLOBIN 31.8 pg (27.0-33.0); MEAN CORPUSCULAR HGB CONC 34.4 g/dl (32.0-36.5); MEAN CORPUSCULAR VOLUME 92.4 fl (80.0-96.0); MONO # 0.8 10^3/uL (0.0-0.8); MONO % 11.8 % (0.0-5.0); NEUTROPHILS # 2.6 10^3/uL (1.8-7.7); PLATELET COUNT, AUTOMATED 153 10^3/uL (150-450); RED BLOOD COUNT 4.06 10^6/uL (4.00-5.40); WHITE BLOOD COUNT 6.7 10^3/uL (4.0-10.0)
[2018-12-30 04:56] LABS: ALBUMIN 3.9 GM/DL (3.2-5.2); ALT/SGPT 21 U/L (12-78); BILIRUBIN,DIRECT 0.2 MG/DL (0.0-0.2); BILIRUBIN,TOTAL 0.6 MG/DL (0.2-1.0); BLOOD UREA NITROGEN 16 MG/DL (7-18); CALCIUM LEVEL 8.6 MG/DL (8.5-10.1); CARBON DIOXIDE LEVEL 30 MEQ/L (21-32); CHLORIDE LEVEL 108 MEQ/L (98-107); CREATININE FOR GFR 0.71 MG/DL (0.55-1.30); GLOMERULAR FILTRATION RATE > 60.0 (>60); GLUCOSE, FASTING 72 MG/DL (70-100); LIPASE 96 U/L (73-393); POTASSIUM SERUM 3.7 MEQ/L (3.5-5.1); SODIUM LEVEL 144 MEQ/L (136-145); TOTAL PROTEIN 6.7 GM/DL (6.4-8.2)
[2018-12-30 05:04] VITALS: BP 101/65
[2018-12-30] MEDS ORDERED: GI COCKTAIL 50ML BTL(HYOSCYAMINE/MAALOX/LIDOCAINE VISCOUS)(1:3:1) As Ordered ONE (05:05)
[2018-12-30] MEDS ORDERED: GI COCKTAIL 50ML BTL(HYOSCYAMINE/MAALOX/LIDOCAINE VISCOUS)(1:3:1) PO ONE (05:15)
[2018-12-31] MEDS ORDERED: PEPC1TAB5 PO (17:39)
[2018-12-31] MEDS ORDERED: SUCR1SS PO (17:39)
== END 2018-12-30 06:00 | disposition home or self-care (01) ==
LOC: M ED 03:45
DX: R10.13 Epigastric pain (principal); R11.10 Vomiting, unspecified; K21.9 Gastro-esophageal reflux disease without esophagitis; F17.210 Nicotine dependence, cigarettes, uncomplicated; Z88.8 Allergy status to other drugs, medicaments and biological substances; Z79.891 Long term (current) use of opiate analgesic

== ENCOUNTER 2018-12-31 16:12 | Emergency (ER) | payer OTHER ==
[~2018-12-31] VITALS: Ht 165.1 cm; Wt 52.9 kg
[~2018-12-31 16:12] MED LIST changes: +TRAM50TA2
[2018-12-31] MEDS ORDERED: NS 1,000 ML IV SCH (16:28)
[2018-12-31] MEDS ORDERED: NS 500 ML IV ONE (16:30)
[2018-12-31] MEDS ORDERED: FAMOTIDINE INJ 20MG/2ML VIAL (S0028) IVP ONE (16:30)
[2018-12-31] MEDS ORDERED: SUCRALFATE 1 GM TAB PO ONE (16:30)
[2018-12-31] MEDS ORDERED: PROMETHAZINE INJ 25 MG/ML VIAL (J2550) IV ONE (16:30)
[2018-12-31] MEDS ORDERED: NS 1,000 ML IV ONE (16:45)
[2018-12-31 16:57] LABS: BASO % 0.7 % (0.0-1.0); EOS # 0.2 10^3/uL (0.0-0.50); EOS % 2.7 % (0.0-3.0); HEMATOCRIT 41.4 % (36.0-47.0); HEMOGLOBIN 14.3 g/dl (12.0-15.5); LYMPH # 1.8 10^3/uL (1.5-6.5); MEAN CORPUSCULAR HEMOGLOBIN 31.6 pg (27.0-33.0); MEAN CORPUSCULAR HGB CONC 34.5 g/dl (32.0-36.5); MEAN CORPUSCULAR VOLUME 91.4 fl (80.0-96.0); MONO # 0.5 10^3/uL (0.0-0.8); MONO % 8.6 % (0.0-5.0); NEUTROPHILS # 3.4 10^3/uL (1.8-7.7); NEUTROPHILS % 56.5 % (36.0-66.0); PLATELET COUNT, AUTOMATED 148 10^3/uL (150-450); RED BLOOD COUNT 4.53 10^6/uL (4.00-5.40); WHITE BLOOD COUNT 5.9 10^3/uL (4.0-10.0)
[2018-12-31 17:31] LABS: ALBUMIN 4.1 GM/DL (3.2-5.2); BILIRUBIN,DIRECT 0.2 MG/DL (0.0-0.2); TOTAL PROTEIN 7.1 GM/DL (6.4-8.2)
[2018-12-31] MEDS ORDERED: SUCR1SS PO (17:39)
[2018-12-31] MEDS ORDERED: PEPC1TAB5 PO (17:39)
[2018-12-31 20:30] VITALS: BP 87/53
--- NOTE | 2018-12-31 20:34 | REPVR ---
EXAM: US Abdomen Limited, Right Upper Quadrant EXAM DATE/TIME: 12/31/2018 7:20 PM CLINICAL HISTORY: 28 years old, female; Abdominal pain; Epigastric; Additional info: Ruq pain TECHNIQUE: Imaging protocol: Real-time ultrasound of the abdomen with image documentation. Examination was focused on the right upper quadrant. COMPARISON: GALLBLADDER US 03/22/2015. FINDINGS: Liver: Liver size and contour are normal. Liver length is cm. Hepatic echotexture is normal. There is no hepatic mass. Intrahepatic bile ducts are not dilated. Gallbladder: Normal size. Wall thickness is 2.4 mm, which is normal. No gallstones. The yarn mercerizer operator helper reports a negative sonographic Malave's sign. Common bile duct: 1.3 mm at the thony hepatis, which is normal. Pancreas: Normal. Right kidney: Normal in size, 12.2 x 4.8 x 3.7 cm. There is no solid right renal mass, cortical loss, stone or hydronephrosis. IMPRESSION: No acute findings. No change compared to the last ultrasound 4 years ago. Electronically signed by: Chava Villanueva On 12/31/2018 20:34:38 PM
== END 2018-12-31 21:32 | disposition home or self-care (01) ==
LOC: M ED 16:12
DX: K29.70 Gastritis, unspecified, without bleeding (principal); Z79.899 Other long term (current) drug therapy; Z88.8 Allergy status to other drugs, medicaments and biological substances

== ENCOUNTER → 2019-01-02 | Outpatient (CLI) | payer OTHER ==
[~2019-01-02] MED LIST changes: +GASTROGRAFIN SOLUTION 30ML (Q9963) As Ordered ONE; +ISOVUE-370 76% 100ML VIAL (Q9967) As Ordered ONE; +PEPC1TAB5 PO; +SERT-155 PO; -SERT50TA29 PO; +SUCR1SS PO
--- NOTE | 2019-01-02 15:41 | REP ---
REASON FOR EXAM: Abdominal pain. COMPARISON: Multiple, the latest 03/31/2018. CONTRAST: 100 mL Isovue 370. The lung bases are clear. The liver, gallbladder, spleen, pancreas, adrenal glands, and kidneys are within normal limits. The abdominal aorta and paraaortic regions are within normal limits. There is no free fluid or free air. The bowel loops and their mesenteries are within normal limits. There is no intra-abdominal mass or adenopathy. CT PELVIS: The bowel loops and their mesenteries are within normal limits. There is no pelvic mass or adenopathy. There is no free fluid or free air. Bone window technique throughout the examination shows the osseous structures to be stable and intact. IMPRESSION: No acute intra-abdominal or intrapelvic disease. No change from the prior exam. Electronically Signed by Kristian Vasquez DO 01/02/2019 04:21 P
== END ==
LOC: M RAD 12:32
PROVIDERS: ATTEND Physician Assistant
DX: R10.30 Lower abdominal pain, unspecified (principal)
CPT/HCPCS: 74177; Q9963; Q9967

== ENCOUNTER 2021-03-13 06:45 | Day surgery (SDC) | payer OTHER ==
[~2021-03-13] VITALS: Ht 167.6 cm; Wt 54.9 kg
[~2021-03-13 06:45] MED LIST changes: -GASTROGRAFIN SOLUTION 30ML (Q9963) As Ordered ONE; -ISOVUE-370 76% 100ML VIAL (Q9967) As Ordered ONE; +LIDOCAINE 2% 100MG/5ML SDV (FOR ANES.) As Ordered ONE; +NS 1,000 ML IV ONE; -SERT-155 PO; +SERT50TA29 PO; +propofoL 200 MG/20 ML VIAL As Ordered ONE
--- OUTSIDE RECORDS SUMMARY | 2021-03-13 06:53 | CCD | Continuity of Care Document ---
Author Author Samina CAMARGO M.D. Organization Unknown Address [address] [place] [address], [address] [place] [address] Phone [phone] Care Team Providers Care Peeler Operator Name Role Phone Jeffrey Hoffman M.D. AUTM [phone] Tony Wei AUTM [phone] Neema Cage D.O. AUTM [phone] Problems Active Problems Provider Date Acute appendicitis without peritonitis Fernando Esteban, Onset: 04/26/2013 Social History Type Date Description Comments Sex Unknown ETOH Use 1/mo Tobacco Use Start: Unknown 1/2ppd Recreational Drug Use Denies Drug Use Exercise Type/Frequency Exercises regularly Allergies, Adverse Reactions, Alerts Active Allergies Criticality Reaction | Severity Comments Date Gabapentin Unable to assess criticality RASH 03/31/2018 Inactive Allergies NKDA Unable to assess criticality 08/26/2017 Medications Active Medications SIG Qnty Indications Ordering Provide r Date Miralax 17GM/Scoop Powder 17 gram per dose, mixed with 8 oz water/fluid and to be taken 1 -2 times a day. ( hold or decrease dose if having diarrhea) 238gm K59.00 Angelo moreno M.D. 01/23/2021 Senna 8.6mg Tablets 2 tab by mouth every day at bedtime 60tabs K59.00 Angelo Camargo M.D. 2020 Excedrin Migraine [phone] Tab lets prn Unknown Botox 100Unit Solution Rec q3 mo Unknown Immunizations CPT Code Status Date Vaccine Lot # [id number] Given 04/10/2016 Tetanus, Diphthe elizabeth Toxoids/Acellular Pertussis Vaccine 7 Or > [id number] Given 04/10/2016 Tetanus, Diphthe elizabeth Toxoids/Acellular Pertussis Vaccine 7 Or > Vital Signs Date Vital Result Comment 01/23/2021 10:50am BP Systolic 96 mmHg BP Diastolic 54 mmHg Height 66 inches 5'6" Weight 120.00 lb BMI (Body Mass Index) 19.4 kg/m2 [place] Body Weight 130 lb Weight 54.432 kg BSA (Body Surface Area) 1.61 m2 03/31/2018 2:41pm BP Systolic 102 mmHg BP Diastolic 68 mmHg Height 65.5 inches 5'5.50" Weight 120.50 lb BMI (Body Mass Index) 19.7 kg/m2 [place] Body Weight 125 lb Weight 54.659 kg BSA (Body Surface Area) 1.60 m2 Results Description No Information Available Procedures Description No Information Available Medical Devices Description No Information Available Encounters Description No Information Available Assessments Date Code Description Provider 01/23/2021 K59.00 Constipation, unspecified [place] Camargo M.D. 01/23/2021 R10.30 Lower abdominal pain, unspecifie d Angelo Camargo M.D. Plan of Treatment 01/23/2021 - Angelo Camargo M.D.* K59.00 Constipation, unspecified * R10.30 Lower abdominal pain, unspecified * * New Medication:* Miralax 17 GM/Scoop * Senna 8.6 mg * New Orders:* Colonoscopy, Ordered: 01/23/21 * Comments:* Impression:-- Chronic constipation with increasing right lower abdominal pain, bloating and prior surgeries and complications ( symptoms worsening and not improving with medications or dietary changes) --. DDx- r/o functional vs IBD vs IBS- C vs colon polyp. ( family history of colon cancer in grand father). * Recommendations:* -- Patient is educated about the prior test results and all possible differential diagnoses. All questions answered. -- Educated patient to take high fiber diet. -- Will put the patient on regular laxatives -- Senna and Miralax. -- Will schedule for diagnostic colonoscopy. The procedure, indications, risks (bleeding, perforation, infection, hypotension, respiratory depression, allergy, need for endotracheal intubation, surgery, colostomy, cardiac arrest, even ), benefits, limitations (e.g., missing a lesion), and all other alternatives (including no intervention) were explained to the patient who understood and agreed/ consented for the procedure. -- Based on the above will order any blood work up if needed. -- Return to clinic 2 weeks post procedures. -- Follow up with PMD for routine medical care and other age appropriate health maintenance.. Functional Status Description No Information Available Mental Status Description No Information Available Referrals Refer to Reason for Referral Status Appt Date Angelo Camargo M.D. K59.00 constipation, unspecified Ani eduled 01/06/2021 [facility] [address] [facility], [address] [place] [address] [phone]
--- OUTSIDE RECORDS SUMMARY | 2021-03-13 06:53 | CCD | Continuity of Care Document ---
Author Author Samina RAUSCH PA-C Organization Unknown Address [address] [address] Phone [phone] Care Team Providers Care Glaze Grinder Name Role Phone Tony Grant AUTM [phone] Problems Active Problems Provider Date Headache Raúl Rausch PA-C Onset: 10/12/2017 Social History Type Date Description Comments Sex Unknown ETOH Use Denies alcohol use Recreational Drug Use Denies Drug Use Tobacco Use Start: Unknown Patient is a current smoker, smo kes every day Allergies, Adverse Reactions, Alerts Active Allergies Criticality Reaction | Severity Comments Date Gabapentin Unable to assess criticality 10/12/2017 Inactive Allergies NKDA Unable to assess criticality 10/12/2017 Medications Active Medications SIG Qnty Indications Ordering Provide r Date Zolmitriptan 2.5mg Tablets 1 tab by mouth AT onset of headache. may repeat in 2 hours prn. mdd=2, mwd=3 9tabs Raúl Rausch PA-C 02/06/2021 Verapamil HCL 40mg Tablets 1 tab by mouth daily for 1 week then 1 tab bid 60tabs Raúl Rausch PA-C 09/24/2020 Medrol 4mg TBPK 24 mg day 1, dec by 4 mg/day x5 days per pack instructions 21units G43.711 Raúl ledezma PA-C 03/28/2020 Effexor XR 75mg Caps ER 24HR 1 cap by mouth every day 30caps G43.711 Raúl Rausch PA-C 12/27/2019 Botox 200Unit Solution Rec Inject 155 Units Intramuscularly Every 12 Weeks (Given AT MD Office, Discard Unused) 1units Raúl Rausch PA-C 07/29/2018 History Medications Reyvow 50mg Tablets 1 tablet AT onset of migraine. do not drive for 8 hours after taking 8tabs Raúl Rausch PA-C 08/16/2020 - 09/23/2020 Immunizations Description No Information Available Vital Signs Date Vital Result Comment 06/29/2019 11:19am BP Systolic 113 mmHg BP Diastolic 77 mmHg Heart Rate 76 /min Body Temperature 97.7 F Body Temperature 36.5 C Respiratory Rate 16 /min 10/13/2018 10:18am BP Systolic 103 mmHg BP Diastolic 68 mmHg Heart Rate 72 /min Body Temperature 98.6 F Body Temperature 37.0 C Results Description No Information Available Procedures Date Code Description Status 02/06/2021 46712 Chemodenervation Of Extremity Muscles Innervated By Facial Nerves Completed 11/07/2020 49108 Chemodenervation Of Extremity Muscles Innervated By Facial Nerves Completed 08/16/2020 14789 Office/Outpatient Established Mo d MDM 30-39 Min Completed Medical Devices Description No Information Available Encounters Type Date Location Provider Dx Diagnosis Office Visit 08/16/2020 12:40p [facility] Neurology Raúl Rausch PA-C G43 .711 Chronic migraine w/o aura, intractable, w status migrainosus Assessments Date Code Description Provider 02/06/2021 G43.719 Chronic migraine wit hout aura, intractable, without status migrainosus Raúl Rausch PA-C 11/07/2020 G43.719 Chronic migraine wit hout aura, intractable, without status migrainosus Raúl Rausch PA-C 10/07/2020 G43.719 Chronic migraine wit hout aura, intractable, without status migrainosus Raúl Rausch PA-C 08/16/2020 G43.711 Chronic migraine without aura, i ntractable, with status migr Raúl Rausch PA-C Plan of Treatment Future Appointment(s):* 05/01/2021 3:20 pm - Raúl Rausch PA-C at [facility] Neurology 02/06/2021 - Raúl Rausch PA-C* G43.719 Chronic migraine without aura, intractable, without status migrainosus Functional Status Description No Information Available Mental Status Description No Information Available Referrals Refer to Reason for Referral Status Appt Date ongoing neck pain despite previous trial of PT Created Raúl Rausch PA auth approval# [id number] Created [facility] [address] [place] [address] [phone]"
--- OUTSIDE RECORDS SUMMARY | 2021-03-13 06:53 | CCD | Continuity of Care Document ---
Author Author Samina CAMARGO M.D. Organization Unknown Address [address] [place] [address], [address] [place] [address] Phone [phone] Care Team Providers Care Marketing Development Manager Name Role Phone Jeffrey Hoffman M.D. AUTM [phone] Tony Wei AUTM [phone] Neema Cage D.O. AUTM Problems Active Problems Provider Date Acute appendicitis [...] K59.00 Angelo Camargo M.D. 2020 Excedrin Migraine [phone] Tab lets prn Unknown Botox 100Unit Solution Rec q3 mo Unknown Immunizations CPT Code Status Date Vaccine Lot # [id number] Given 04/10/2016 Tetanus, Diphthe elizabeth Toxoids/Acellular Pertussis Vaccine 7 Or > [id number] Given 04/10/2016 Tetanus, Diphthe elizabeth Toxoids/Acellular Pertussis Vaccine 7 Or > Vital Signs Date Vital Result Comment 01/23/2021 10:50am BP Systolic 96 mmHg BP Diastolic 54 mmHg Height 66 inches 5'6" Weight 120.00 lb BMI (Body Mass Index) 19.4 kg/m2 [place] Body Weight 130 lb Weight 54.432 kg BSA (Body Surface Area) 1.61 m2 03/31/2018 2:41pm BP Systolic 102 mmHg BP Diastolic 68 mmHg Height 65.5 inches 5'5.50" Weight 120.50 lb BMI (Body Mass Index) 19.7 kg/m2 [place] Body Weight 125 lb Weight 54.659 kg BSA (Body Surface Area) 1.60 m2 Results Description No Information Available Procedures Date Code Description Status 01/23/2021 77631 Office/Outpatient New Moderate M DM 45-59 Minutes Completed Medical Devices Description No Information Available Encounters Type Date Location Provider Dx Diagnosis Office Visit 01/23/2021 10:00a [facility] ctice Angelo Camargo M.D. K59.00 Constipation, unspecified R10.30 Lower abdominal pain, unspec ified Assessments Date Code Description Provider 01/23/2021 K59.00 Constipation, unspecified [place] Camargo M.D. 01/23/2021 R10.30 Lower abdominal pain, unspecifie d Angelo Camargo M.D. Plan of Treatment Future Appointment(s):* 03/19/2021 2:15 pm - Angelo Camargo M.D. at [facility] * 03/13/2021 7:30 am - Angelo Camargo M.D. at [facility] Functional Status Description No Information Available Mental Status Description No Information Available Referrals Refer to Reason for Referral Status Appt Date Angelo Camargo M.D. K59.00 constipation, unspecified Ani eduled 01/06/2021 [facility] [address] [facility], [address] [place] [address] [phone]
--- OUTSIDE RECORDS SUMMARY | 2021-03-13 06:54 | CCD ---
Author Author [facility] Organization [facility] Address Unknown Phone Unavailable Care Team Providers Care Guard Captain Name Role Phone NASIR, Jason SORTO Unavailable Unavailable LETTIERE, Jason SORTO Unavailable Unavailable LETTIERE, Jason SORTO Unavailable Unavailable LETTIERE, Jason SORTO Unavailable Unavailable LETTIERE, Jason SORTO Unavailable Unavailable LETTIERE, Jason SORTO Unavailable Unavailable LETTIERE, Jason SORTO Unavailable Unavailable LETTIERE, Jason SORTO Unavailable Unavailable LETTIERE, Jason SORTO Unavailable Unavailable LETTIERE, Jason SORTO Unavailable Unavailable LETTIERE, Jason SORTO Unavailable Unavailable LETTIERE, Jason SORTO Unavailable Unavailable LETTIERE, Jason SORTO Unavailable Unavailable LETTIERE, Jason SORTO Unavailable Unavailable LETTIERE, Jason SORTO Unavailable Unavailable LETTIERE, Jason SORTO Unavailable Unavailable LETTIERE, Jason SORTO Unavailable Unavailable LETTIERE, Jason SORTO Unavailable Unavailable LETTIERE, Jason SORTO Unavailable Unavailable LETTIERE, Jason SORTO Unavailable Unavailable LETTIERE, Jason SORTO Unavailable Unavailable LETTIERE, Jason SORTO Unavailable Unavailable LETTIERE, Jason SORTO Unavailable Unavailable LETTIERE, A RADHA PA Unavailable Unavailable LETTIERE, A RADHA PA Unavailable Unavailable LETTIERE, A RADHA PA Unavailable Unavailable LETTIERE, A RADHA PA Unavailable Unavailable LETTIERE, A RADHA PA Unavailable Unavailable LETTIERE, A RADHA PA Unavailable Unavailable LETTIERE, A RADHA PA Unavailable Unavailable LETTIERE, A RADHA PA Unavailable Unavailable O'nora, A Radha PA Unavailable Unavailable O'nora, A Radha PA Unavailable Unavailable O'nora, A Radha PA Unavailable Unavailable O'nora, A Radha PA Unavailable Unavailable O'nora, A Radha PA Unavailable Unavailable O'nora, A Radha PA Unavailable Unavailable O'nora, A Radha PA Unavailable Unavailable O'nora, A Radha PA Unavailable Unavailable O'nora, A Radha PA Unavailable Unavailable O'nora, A Radha PA Unavailable Unavailable O'nora, A Radha PA Unavailable Unavailable O'nora, A Radha PA Unavailable Unavailable O'nora, A Radha PA Unavailable Unavailable O'nora, A Radha PA Unavailable Unavailable O'nora, A Radha PA Unavailable Unavailable O'nora, A Radha PA Unavailable Unavailable O'nora, A Radha PA Unavailable Unavailable O'nora, A Radha PA Unavailable Unavailable O'nora, A Radha PA Unavailable Unavailable O'nora, A Radha PA Unavailable Unavailable O'nora, A Radha PA Unavailable Unavailable O'nora, A Radha PA Unavailable Unavailable O'nora, A Radha PA Unavailable Unavailable O'nora, A Radha PA Unavailable Unavailable O'nora, A Radha PA Unavailable Unavailable O'nora, A Radha PA Unavailable Unavailable O'nora, A Radha PA Unavailable Unavailable O'nora, A Radha PA Unavailable Unavailable O'nora, A Radha PA Unavailable Unavailable O'nora, A Radha PA Unavailable Unavailable O'nora, A Radha PA Unavailable Unavailable O'nora, A Radha PA Unavailable Unavailable O'nora, A Radha PA Unavailable Unavailable Rausch, T Raúl PA Unavailable Unavailable Rausch, T Raúl PA Unavailable Unavailable Rausch, T Raúl PA Unavailable Unavailable Rausch, T Raúl PA Unavailable Unavailable Rausch, T Raúl PA Unavailable Unavailable Rausch, T Raúl PA Unavailable Unavailable Rausch, T Raúl PA Unavailable Unavailable Rausch, T Raúl PA Unavailable Unavailable Rausch, T Raúl PA Unavailable Unavailable Rausch, T Rúal PA Unavailable Unavailable Rausch, T Raúl PA Unavailable Unavailable Rausch, T Raúl PA Unavailable Unavailable Rausch, T Raúl PA Unavailable Unavailable Rausch, T Raúl PA Unavailable Unavailable Rausch, T Raúl PA Unavailable Unavailable Rausch, T Raúl PA Unavailable Unavailable Rausch, T Raúl PA Unavailable Unavailable Rausch, T Raúl PA Unavailable Unavailable Rausch, T Raúl PA Unavailable Unavailable Rausch, T Raúl PA Unavailable Unavailable Rausch, T Raúl PA Unavailable Unavailable Rausch, T Raúl PA Unavailable Unavailable Rausch, T Raúl PA Unavailable Unavailable Raucsh, T Raúl PA Unavailable Unavailable Rausch, T Raúl PA Unavailable Unavailable Rausch, T Raúl PA Unavailable Unavailable Rausch, T Raúl PA Unavailable Unavailable Rausch, T Raúl PA Unavailable Unavailable Rausch, T Raúl PA Unavailable Unavailable Rausch, T Raúl PA Unavailable Unavailable Rausch, T Raúl PA Unavailable Unavailable Rausch, T Raúl PA Unavailable Unavailable Rausch, T Raúl PA Unavailable Unavailable Rausch, T Raúl PA Unavailable Unavailable Rausch, T Raúl PA Unavailable Unavailable Rausch, T Raúl PA Unavailable Unavailable Rausch, T Raúl PA Unavailable Unavailable Rausch, T Raúl PA Unavailable Unavailable Rausch, T Raúl PA Unavailable Unavailable Rausch, T Raúl PA Unavailable Unavailable Rausch, T Raúl PA Unavailable Unavailable Rausch, T Raúl PA Unavailable Unavailable Rausch, T Raúl PA Unavailable Unavailable Rausch, T Raúl PA Unavailable Unavailable Rausch, T Raúl PA Unavailable Unavailable Rausch, T Raúl PA Unavailable Unavailable Daly Donovan MD Unavailable Unavailable Daly Donovan MD Unavailable Unavailable Daly Donovan MD Unavailable Unavailable Daly Donovan MD Unavailable Unavailable Daly Donovan MD Unavailable Unavailable Daly Donovan MD Unavailable Unavailable Daly Donovan MD Unavailable Unavailable Daly Donovan MD Unavailable Unavailable Daly Donovan MD Unavailable Unavailable Daly Donovan MD Unavailable Unavailable Daly Donovan MD Unavailable Unavailable Daly Donovan MD Unavailable Unavailable Daly Donovan MD Unavailable Unavailable Daly Donovan MD Unavailable Unavailable Daly Donovan MD Unavailable Unavailable Daly Donovan MD Unavailable Unavailable Daly Donovan MD Unavailable Unavailable Daly Donovan MD Unavailable Unavailable Daly Donovan MD Unavailable Unavailable Daly Donovan MD Unavailable Unavailable Daly Donovan MD Unavailable Unavailable Daly Donovan MD Unavailable Unavailable Daly Donovan MD Unavailable Unavailable Daly Donovan MD Unavailable Unavailable Daly Donovan MD Unavailable Unavailable Hardeep CAMARGO MD Unavailable Unavailable Hardeep CAMARGO MD Unavailable Unavailable Hardeep CAMARGO MD Unavailable Unavailable Hardeep CAMARGO MD Unavailable Unavailable Hardeep CAMARGO MD Unavailable Unavailable Hardeep CAMARGO MD Unavailable Unavailable Hardeep CAMARGO MD Unavailable Unavailable Hardeep CAMARGO MD Unavailable Unavailable Hardeep CAMARGO MD Unavailable Unavailable Hardeep CAMARGO MD Unavailable Unavailable Hardeep CAMARGO MD Unavailable Unavailable Hardeep CAMARGO MD Unavailable Unavailable Hardeep CAMARGO MD Unavailable Unavailable Hardeep CAMARGO MD Unavailable Unavailable Hardeep CAMARGO MD Unavailable Unavailable Hardeep CAMARGO MD Unavailable Unavailable Hardeep CAMARGO MD Unavailable Unavailable Hardeep CAMARGO MD Unavailable Unavailable Hardeep CAMARGO MD Unavailable Unavailable Hardeep CAMARGO MD Unavailable Unavailable Hardeep CAMARGO MD Unavailable Unavailable Hardeep CAMARGO MD Unavailable Unavailable Hardeep CAMARGO MD Unavailable Unavailable Hardeep CAMARGO MD Unavailable Unavailable Hardeep CAMARGO MD Unavailable Unavailable Hardeep CAMARGO MD Unavailable Unavailable Hardeep CAMARGO MD Unavailable Unavailable Hardeep CAMARGO MD Unavailable Unavailable Hardeep CAMARGO MD Unavailable Unavailable Hardeep CAMARGO MD Unavailable Unavailable Hardeep CAMARGO MD Unavailable Unavailable Hardeep CAMARGO MD Unavailable Unavailable Hardeep CAMARGO MD Unavailable Unavailable Anyi Gloriaopher PA-C Unavailable Unavailable Anyi Gloriaopher PA-C Unavailable Unavailable Anyi Gloriaopher PA-C Unavailable Unavailable Anyi Gloriaopher PA-C Unavailable Unavailable Anyi Gloria Christopher PA-C Unavailable Unavailable Anyi Gloriaopher PA-C Unavailable Unavailable Anyi Gloria Christopher PA-C Unavailable Unavailable Anyi Gloriaopher PA-C Unavailable Unavailable Anyi Gloriaopher PA-C Unavailable Unavailable Gloria, M Christopher PA-C Unavailable Unavailable Gloria, M Christopher PA-C Unavailable Unavailable Gloria, M Christopher PA-C Unavailable Unavailable Gloria, M Christopher PA-C Unavailable Unavailable Gloria, M Christopher PA-C Unavailable Unavailable Gloria, M Christopher PA-C Unavailable Unavailable Gloria, M Christopher PA-C Unavailable Unavailable Gloria, M Christopher PA-C Unavailable Unavailable Gloria, M Christopher PA-C Unavailable Unavailable Gloria, M Christopher PA-C Unavailable Unavailable Gloria, M Christopher PA-C Unavailable Unavailable Gloria, M Christopher PA-C Unavailable Unavailable Gloria, M Christopher PA-C Unavailable Unavailable Gloria, M Christopher PA-C Unavailable Unavailable Gloria, M Christopher PA-C Unavailable Unavailable Gloria, M Christopher PA-C Unavailable Unavailable Gloria, M Christopher PA-C Unavailable Unavailable Re-disclosure Warning The records that you are about to access may contain information from federally-assisted alcohol or drug abuse programs. If such information is present, then the following federally mandated warning applies: This information has been disclosed to you from records protected by federal confidentiality rules (42 CFR part 2). The federal rules prohibit you from making any further disclosure of this information unless further disclosure is expressly permitted by the written consent of the person to whom it pertains or as otherwise permitted by 42 CFR part 2. A general authorization for the release of medical or other information is NOT sufficient for this purpose. The Federal rules restrict any use of the information to criminally investigate or prosecute any alcohol or drug abuse patient.The records that you are about to access may contain highly sensitive health information, the redisclosure of which is protected by Article 27-F of the [facility] Public Health law. If you continue you may have access to information: Regarding HIV / AIDS; Provided by facilities licensed or operated by the [facility] Office of Mental Health; or Provided by the [facility] Office for People With Developmental Disabilities. If such information is present, then the following [facility] mandated warning applies: This information has been disclosed to you from confidential records which are protected by state law. State law prohibits you from making any further disclosure of this information without the specific written consent of the person to whom it pertains, or as otherwise permitted by law. Any unauthorized further disclosure in violation of state law may result in a fine or long-term sentence or both. A general authorization for the release of medical or other information is NOT sufficient authorization for further disc losure. Allergies and Adverse Reactions Type Description Substance Reaction Status Data Source(s ) Drug Allergy NKDA NKDA [facility] ([facility]) Family History Family Member Name Family Member Gender Family Member Status Date o f Status Description Data Source(s) Unknown Male Problem [facility] ([facility]) Unknown Unknown Problem [facility] ([facility]) maternal grandmother Unknown Unknown Problem [facility] ([facility] ) Unknown Male Problem [facility] ([facility]) Encounters Encounter Providers Location Date Indications Data Source(s ) Outpatient 03/10/2021 06:39:39 PM EDT - 021 08:08:18 PM EDT [facility] ([facility]) Outpatient Attender: RAVEN Elena/Kimberlyn/Adriel todd/Antelmo 01/23/2021 10:00:00 AM EDT [facility] ([facility]) Outpatient 01/08/2021 01:33:25 PM EDT - 021 01:38:36 PM EDT [facility] ([facility]) Outpatient Attender: Hermilo Gloria PA-C 11/25/2020 04:16:49 PM EDT - 11/25/2020 06:13:05 PM EDT [facility] ([facility]) Outpatient 10/30/2020 01:19:35 PM EDT - 021 01:23:38 PM EDT [facility] ([facility]) Outpatient Attender: Radha SORTO [facility] 10/04/2020 01:20:00 PM EDT [facility] ([facility]) Outpatient Attender: Abena Donovan MD 0 09/25/2020 08:43:29 AM EDT - 09/25/2020 09:11:35 AM EDT [facility] ([facility]) Outpatient Attender: RADHA newman 09/13/2020 04:00:00 PM EDT [facility] ([facility]) Outpatient 09/11/2020 02:06:22 PM EDT - 02:08:58 PM EDT [facility] ([facility]) Outpatient Attender: Radha SORTO [facility] 09/05/2020 03:00:00 PM EDT [facility] ([facility]) Outpatient Attender: Raúl SORTO [facility] [place] 08/16/2020 12:40:00 PM EDT [facility] ([facility]) Outpatient Attender: Radha SORTO [facility] 03/13/2020 11:00:00 AM EDT [facility] ([facility]) Medications Medication Brand Name Start Date Product Form Dose Route Admi nistrative Instructions Pharmacy Instructions Status Indications Reaction Description Data Source(s) zolmitriptan 2.5 MG Oral Tablet Zolmitriptan 02/06/2021 12:00:00 AM E DT ORAL active [facility] ([facility]) sennosides, PRISON 8.6 MG Oral Tablet Senna 01/23/2021 12:00:00 AM EDT ORAL active [facility] ([facility], ) POLYETHYLENE GLYCOL 3350 142 MG/ML Oral Solution [Miralax] M iralax 01/23/2021 12:00:00 AM EDT active M EDENT ([facility], ) 8.6 mg 01/23/2021 12:00:00 AM EDT tablet 60 TAKE TWO TABLETS BY MOUTH EVERY DAY AT BEDTIME TAKE TWO TABLETS BY MOUTH EVERY DAY AT BEDTIME SOLD: [facility] 17 gram/dose 01/23/2021 12:00:00 AM EDT powder 238 USE 17 GRAMS PER DOSE, MIXED WITH 8 OUNCES WATER/ FLUID AND TO BE TAKE 1-2 TIMES A DAY (HOLD OR DECREASE DOSE IF HAVING DIARRHEA) USE 17 GRAMS PER DOSE, MIXED WITH 8 OUNC ES WATER/ FLUID AND TO BE TAKE 1-2 TIMES A DAY (HOLD OR DECREASE DOSE IF HAVING DIARRHEA) SOLD: 01/31/2021 [facility] NITROFURANTOIN, MACROCRYSTALS 25 MG / Ni trofurantoin, Monohydrate 75 MG Oral Capsule 100 mg NITROFURANTOIN MONOHYD/M-CRYST 01/07/2021 12:00:00 AM EDT ca psule 14 TAKE ONE CAPSULE BY MOUTH TWICE A DAY TAKE ONE CAPSULE BY MOUTH TWICE A DAY SOLD: 01/08/2021 [facility] Cyclobenzaprine hydrochloride 10 MG Oral Tablet CYCLOBENZAPR INE HCL 11/25/2020 12:00:00 AM EDT tablet 9 TAKE ONE TABLET BY MOUTH THREE TIMES A DAY NEEDED FOR 3 DAYS TAKE ONE TABLET BY MOUTH THREE TIMES A DAY NEEDED F OR 3 DAYS SOLD: 11/25/2020 [facility] Verapamil hydrochloride 40 MG Oral Tablet Verapamil HCL 09/24/2020 12:00:00 AM EDT ORAL active [facility] ([facility]) No Active Medications 09/13/2020 12:00:00 AM EDT completed [facility] ([facility]) 100 mg 09/11/2020 12:00:00 AM EDT capsule 10 TAKE ONE CAPSULE BY MOUTH TWICE A DAY TAKE ONE CAPSULE BY MOUTH TWICE A DAY SOLD: 09/11/2020 [facility] 150 mg 09/11/2020 12:00:00 AM EDT tablet 1 TAKE 1 TABLET BY MOUTH A SINGLE DOSE NOW TAKE 1 TABLET BY MOUTH A SINGLE DOSE NOW SOLD: 09/11/2020 [facility] 0.5 mg (11)- 1 mg (42) 09/06/2020 12:00:00 AM EDT tablets,do se pack 53 TAKE DIRECTED TAKE DIRECTED SOLD: 09/08/2020 [facility] 10 mg 09/06/2020 12:00:00 AM EDT capsule 30 TAKE ONE CAPSULE BY MOUTH EVERY DAY TAKE ONE CAPSULE BY MOUTH EVERY DAY SOLD: 09/08/2020 [facility] Fluoxetine 10 MG Oral Capsule [Prozac] Prozac 09/05/2020 12:00:00 AM EDT ORAL completed [facility] ([facility]) Chantix Starting Month Apolinar Chantix Starting Month Apolianr 2020 12:00:00 AM EDT completed [facility] ([facility]) Reyvow Reyvow 08/16/2020 12:00:00 AM EDT completed [facility] ([facility]) Medrol Medrol 03/28/2020 12:00:00 AM EDT active [facility] ([facility]) 20 % 03/14/2020 12:00:00 AM EDT solution 35 APPLY EACH NIGHT FOR 2-3 DAYS UNTIL SKIN IS DRY AND THEN USE ONCE A WEEK AT NIGHT APPLY EACH NIGHT FOR 2-3 DAYS UNTIL SKIN IS DRY AND THEN USE ONCE A WEEK AT NIGHT SOLD: 05/09/2020 [facility] 20 % 03/14/2020 12:00:00 AM EDT solution 37 APPLY EACH NIGHT FOR 2-3 DAYS UNTIL SKIN IS DRY AND THEN USE ONCE A WEEK AT NIGHT APPLY EACH NIGHT FOR 2-3 DAYS UNTIL SKIN IS DRY AND THEN USE ONCE A WEEK AT NIGHT SOLD: 03/14/2020 [facility] 50 mg 03/13/2020 12:00:00 AM EDT tablet 90 TAKE ONE TABLET BY MOUTH EVERY DAY TAKE ONE TABLET BY MOUTH EVERY DAY SOLD: 03/14/2020 [facility] Spironolactone 50 MG Oral Tablet Spironolactone 03/13/2020 12:00:00 A M EDT ORAL active [facility] ([facility]) Insurance Providers Payer name Policy type / Coverage type Policy ID Covered green party ID Covered green party's relationship to donald Policy Donald Plan Information [facility] Health Maintenance Organization ([facility]) [id number] Self [id number] [facility] Health Maintenance Organization (O) [id number] Self [id number] [facility] Health Maintenance Organization (HMO) [id number] Self [id number] [facility] Health Maintenance Organization (O) [id number] Self [id number] [facility] Health Maintenance Organization (O) [id number] Self [id number] [facility] Health Maintenance Organization (O) [id number] Self [id number] [facility] Health Maintenance Organization (O) [id number] Self [id number] [facility] Health Maintenance Organization (O) [id number] Self [id number] [facility] Health Maintenance Organization (O) [id number] Self [id number] [facility] Health Maintenance Organization (O) [id number] Self [id number] [facility] Health Maintenance Organization (O) [id number] Self [id number] [employer] M[employer]MO [id number] SP [id number] [employer] COMM[employer]ITY PLAN MCDHMO [id number] SP [id number] [employer] COMM[employer]ITY PLAN MCDHMO [id number] SP [id number] [employer] COMMUNITY PLAN MCDHMO [id number] SP [id number] [facility] I [id number] Self [id number] [facility] I [id number] Self [id number] [facility] [employer] [id number] Self [id number] [facility] [employer] [id number] Self [id number] [facility] Community Plan Commercial [id number] Self [id number] [facility] Community Plan Commercial [id number] Self [id number] [facility] Community Plan Commercial [id number] Self [id number] [facility] Community Plan Commercial [id number] Self [id number] [facility] Plan Commercial [id number] Self [id number] ANSI-Medicaid [id number] ANSI-Medicaid [id number] ANSI-Medicaid [id number] ANSI-Medicaid [id number] ANSI-Medicaid [id number] [facility] Community Plan Commercial [id number] Self [id number] ANSI-Medicaid [id number] ANSI-Medicaid [id number] ANSI-Medicaid [id number] ANSI-Medicaid [id number] ANSI-Medicaid [id number] [facility] Community Plan Commercial [id number] Self [id number] [facility] Community Plan Commercial [id number] Self [id number] [facility] Community Plan Commercial [id number] Self [id number] [facility] Health Maintenance Organization (O) [id number] Self [id number] [facility] Health Maintenance Organization (O) [id number] Self [id number] [employer]GGARW[employer] PLAN [id number] SP [id number] O BLUE [id number] SP [id number] [facility] COMMUNITY PLAN [facility] [id number] SP [id number] [facility] O [id number] S [id number] [facility] COMMUNITY PLAN XIX [id number] 18 [id number] [facility] Community Plan Commercial [id number] Self [id number] [facility] Community Plan Commercial [id number] Self [id number] [facility] Community Plan Commercial [id number] Self [id number] [facility] Community Plan Commercial [id number] Self [id number] [facility] Community Plan Commercial [id number] Self [id number] [facility] COMMUNITY PLAN [facility] [id number] SP [id number] [facility] COMMUNITY PLAN XIX [id number] [employer] MEDICARE COMPLETE - O/P [id number] 18 [id number] [facility] Community Plan Commercial [id number] Self [id number] [facility] Community Plan Commercial [id number] Self [id number] [facility] Community Plan Commercial [id number] Self [id number] [facility] Community Plan Commercial [id number] Self [id number] [facility] Community Plan Commercial [id number] Self [id number] [facility] [id number] S [id number] [facility] Community Plan Commercial [id number] Self [id number] [facility] Health Maintenance Organization (HMO) [id number] Self [id number] Problems, Conditions, and Diagnoses No Information Surgeries/Procedures Procedure Description Date Indications Data Source(s) [facility] Extremity Muscles Innervated By Facial N erves 02/06/2021 12:00:00 AM EDT [facility] ([facility]) OFFICE OUTPATIENT NEW 45 MINUTES 01/23/2021 12:00:00 A M EDT [facility] ([facility], ) Chemod[place] Of Extremity Muscles Innervated By Facial N erves 11/07/2020 12:00:00 AM EDT [facility] ([facility]) OFFICE OUTPATIENT VISIT 25 MINUTES 08/16/2020 12:00:00 AM EDT [facility] ([facility]) Chemodenervation Of Extremity Muscles Innervated By Facial N erves 07/05/2020 12:00:00 AM EST [facility] ([facility]) Chemodenervation Of Extremity Muscles Innervated By Facial N erves 03/28/2020 12:00:00 AM EDT [facility] ([facility]) Results ID Date Data Source [id number] 10/11/2020 12:00:00 AM EDT [facility] Name Value Range Interpretation Code Description Data [place] rce(s) Supporting Document(s) SARS-CoV2 Rapid Antigen Negative [facility] This lab was ordered by [facility] and reported by [facility]. ID Date Data Source [id number] 09/26/2020 12:33:00 PM EDT [facility] Name Value Range Interpretation Code Description Data [place] rce(s) Supporting Document(s) COVID-19 RT-PCR DIRECTOR OF RESERVATIONS SWAB Not Detected Not Detected [facility] A not detected (negative) test result fo r this test means that SARS-CoV-2 RNA was not present in the specimen above the limit ofdetection. Laboratory test results should always be considered in thecontext of clinical observations and epidemiological data in making afinal diagnosis and patient management decisions. Results will bereported to government agencies as required.This test has received Emergency Use Authorization (EUA). We will continue to follow federal and state requirements for COVID-19 reporting. This test has been authorized only for the detection of RNAfrom SARS-CoV-2 virus and diagnosis of SARS-CoV-2 virus infection, notfor any other viruses or pathogens. This test is only authorized for the duration of the declaration that circumstances exist justifying the authorization of the emergency use of in vitro diagnostic tests for detection of SARS-CoV-2 virus and/or diagnosis of SARS-CoV-2 virusinfection under section 564(b)(1) of the Act, 21 U.S.C. section 360bbb-3(b)(1), unless the authorization is terminated or revoked sooner. We will continue to follow federal and state requirements for both notification of results and any confirmatory testing that is required by another agency. This test was developed and its performance characteristics determined by [employer] and verified at [employer]. It has not been cleared or approved by the U.S. Food and Drug Administration for diagnostic use. This test has been authorized by FDA under an EUA for use by authorized laboratories. Results should be used in conjunction with clinical findings, and should not form the sole basis for a diagnosis or treatment decision. Methods: SARS-CoV-2 Multiplex RT-PCR Assay ID Date Data Source [id number] 09/25/2020 09:00:00 AM EDT [facility] Name Value Range Interpretation Code Description Data [place] rce(s) Supporting Document(s) SARS-CoV-2 (COVID-19) N gene [Presence] in Respiratory specimen by CONNER with probe detection NEGATIVE [facility] This lab was ordered by [facility] and reported by [employer]. ID Date Data Source [id number] 08/05/2020 12:00:00 AM EST [facility] Name Value Range Interpretation Code Description Data [place] rce(s) Supporting Document(s) SARS-CoV2 Rapid Antigen Negative [facility] This lab was ordered by [facility] and reported by [facility]. Procedure Social History No Information Vital Signs ID Date Data Source UNK Name Value Range Interpretation Code Description Data Source(s) Systolic blood pressure 96 mm[Hg] 96 mm[Hg] M LIZZ[facility] ([facility], ) Diastolic blood pressure 54 mm[Hg] 54 mm[Hg] [facility] ([facility], ) Body height 66 [in_i] 66 [in_i] [facility] ([facility], ) 5'6" Body weight 120.00 [lb_av] 120.00 [lb_av] [facility] T ([facility]) Body mass index (BMI) [Ratio] 19.4 kg/m2 19.4 k g/m2 [facility] ([facility]) [place] body weight 130 [lb_av] 130 [lb_av] [facility] ([facility]) Body weight 54.432 kg 54.432 kg [facility] ([facility]) Body surface area Derived from formula 1.61 m2 1.61 m2 [facility] ([facility]) Diastolic blood pressure 74 mm[Hg] 74 mm[Hg] [facility] ([facility]) Systolic blood pressure 116 mm[Hg] 116 mm[Hg] [facility] ([facility]) Heart rate 69 /min 69 /min [facility] ([facility]) Respiratory rate 18 /min 18 /min [facility] ( [facility]) Body temperature 98.2 [degF] 98.2 [degF] [facility] ([facility]) Oxygen saturation in Arterial blood by Pulse oximetry 99 % 99 % [facility] ([facility]) Body height 65.4 [in_i] 65.4 [in_i] [facility] ([facility]) 5'5.40" Body weight 125.00 [lb_av] 125.00 [lb_av] [facility] ([facility]) Body mass index (BMI) [Ratio] 20.5 kg/m2 20.5 k g/m2 [facility] ([facility]) [place] body weight 125 [lb_av] 125 [lb_av] [facility] ([facility]) Body temperature 98.4 [degF] 98.4 [degF] [facility] ([facility], [facility]) Diastolic blood pressure 83 mm[Hg] 83 mm[Hg] [facility] ([facility], [facility]) Body weight 124.00 [lb_av] 124.00 [lb_av] [facility] T ([facility], [facility]) Heart rate 79 /min 79 /min [facility] ([facility], [facility]) Respiratory rate 14 /min 14 /min [facility] ( [facility], [facility]) Oxygen saturation in Arterial blood by Pulse oximetry 100 % 100 % [facility] ([facility], [facility]) Body mass index (BMI) [Ratio] 20.6 kg/m2 20.6 k g/m2 [facility] ([facility], [facility]) Body height 65 [in_i] 65 [in_i] [facility] ([facility], [facility]) 5'5" Systolic blood pressure 112 mm[Hg] 112 mm[Hg] M [facility] ([facility], [facility]) [place] body weight 125 [lb_av] 125 [lb_av] [facility] T ([facility]) Systolic blood pressure 116 mm[Hg] 116 mm[Hg] M [facility] ([facility]) Diastolic blood pressure 78 mm[Hg] 78 mm[Hg] [facility] ([facility]) Body height 65.4 [in_i] 65.4 [in_i] [facility] ([facility]) 5'5.40" Body weight 124.00 [lb_av] 124.00 [lb_av] [facility] ([facility]) Body mass index (BMI) [Ratio] 20.4 kg/m2 20.4 k g/m2 [facility] ([facility]) Heart rate 89 /min 89 /min [facility] ([facility]) Respiratory rate 18 /min 18 /min [facility] ( [facility]) Body temperature 98.3 [degF] 98.3 [degF] [facility] ([facility]) Oxygen saturation in Arterial blood by Pulse oximetry 99 % 99 % [facility] ([facility]) Systolic blood pressure 104 mm[Hg] 104 mm[Hg] M [facility] ([facility]) Diastolic blood pressure 68 mm[Hg] 68 mm[Hg] [facility] ([facility]) Body height 65.4 [in_i] 65.4 [in_i] [facility] ([facility]) 5'5.40" Body weight 121.38 [lb_av] 121.38 [lb_av] [facility] T ([facility]) Body mass index (BMI) [Ratio] 19.9 kg/m2 19.9 k g/m2 [facility] ([facility]) Heart rate 85 /min 85 /min [facility] ([facility]) Respiratory rate 18 /min 18 /min [facility] ( [facility]) Body temperature 97.8 [degF] 97.8 [degF] [facility] ([facility]) Oxygen saturation in Arterial blood by Pulse oximetry 99 % 99 % [facility] ([facility]) [place] body weight 125 [lb_av] 125 [lb_av] KACI Carbone ([facility])
--- NOTE | 2021-03-13 08:24 | ROOR ---
Patient Name: Samina Ramey Procedure Date: 03/13/2021 7:33 AM Date of : 1990 Age: 30 Room: [facility] Gender: Female Note Status: Finalized Procedure: Colonoscopy Indications: Lower abdominal pain, Change in bowel habits Providers: Angelo Buck MD Referring MD: MACARIO Gambino Requesting Provider: Medicines: Monitored Anesthesia Care Complications: No immediate complications. Procedure: Pre-Anesthesia Assessment: - Prior to the procedure, a History and Physical was performed, and patient medications and allergies were reviewed. The patient is competent. The risks and benefits of the procedure and the sedation options and risks were discussed with the patient. All questions were answered and informed consent was obtained. Patient identification and proposed procedure were verified by the physician, the nurse and the anesthesiologist in the procedure room. Mental Status Examination: alert and oriented. Airway Examination: normal oropharyngeal airway and neck mobility. Respiratory Examination: clear to auscultation. CV Examination: normal. Prophylactic Antibiotics: The patient does not require prophylactic antibiotics. Prior Anticoagulants: The patient has taken no previous anticoagulant or antiplatelet agents. ASA Grade Assessment: II - A patient with mild systemic disease. After reviewing the risks and benefits, the patient was deemed in satisfactory condition to undergo the procedure. The anesthesia plan was to use monitored anesthesia care (MAC). Immediately prior to administration of medications, the patient was re-assessed for adequacy to receive sedatives. The heart rate, respiratory rate, oxygen saturations, blood pressure, adequacy of pulmonary ventilation, and response to care were monitored throughout the procedure. The physical status of the patient was re-assessed after the procedure. The Colonoscope was introduced through the anus and advanced to the terminal ileum, with identification of the appendiceal orifice and IC valve. The colonoscopy was performed without difficulty. The patient tolerated the procedure well. The quality of the bowel preparation was good. The terminal ileum, ileocecal valve, appendiceal orifice, and rectum were photographed. Scope insertion time was 2 minutes. Scope withdrawal time was 9 minutes. The total duration of the procedure was 12 minutes. Findings: The perianal and digital rectal examinations were normal. The terminal ileum appeared normal. A 4 mm polyp was found in the recto-sigmoid colon. The polyp was sessile. The polyp was removed with a cold biopsy forceps. Resection and retrieval were complete. Verification of patient identification for the specimen was done by the physician and nurse using the patient's name, date and medical record number. Estimated blood loss was minimal. Non-bleeding external and internal hemorrhoids were found during retroflexion. The hemorrhoids were medium-sized. Impression: - The examined portion of the ileum was normal. - One 4 mm polyp at the recto-sigmoid colon, removed with a cold biopsy forceps. Resected and retrieved. - Non-bleeding external and internal hemorrhoids. Recommendation: - Patient has a contact number available for emergencies. The signs and symptoms of potential delayed complications were discussed with the patient. Return to normal activities tomorrow. Written discharge instructions were provided to the patient. - High fiber diet. - Continue present medications. - Await pathology results. - Repeat colonoscopy at age 50 for surveillance based on pathology results. - Telephone GI clinic for pathology results in 2 weeks. - Return to GI clinic if persistent symptoms or new symptoms. - Return to primary care physician. Procedure Code(s): --- Professional --- 35243, Colonoscopy, flexible; with biopsy, single or multiple Diagnosis Code(s): --- Professional --- K64.8, Other hemorrhoids K63.5, Polyp of colon R10.30, Lower abdominal pain, unspecified R19.4, Change in bowel habit CPT copyright 2019 [employer]. All rights reserved. The codes documented in this report are preliminary and upon associate of science in nursing review may be revised to meet current compliance requirements. Angelo Buck MD Angelo Buck MD 03/13/2021 8:24:06 AM Electronically signed by Angelo Buck MD Number of Addenda: 0 Note Initiated On: 03/13/2021 7:33 AM Estimated Blood Loss: Estimated blood loss was minimal.
[2021-03-13 08:35] VITALS: BP 59/67
== END 2021-03-13 08:44 | disposition home or self-care (01) ==
LOC: M OPP 06:45
PROVIDERS: ATTEND Internal Medicine Gastroenterology
DX: K63.5 Polyp of colon (principal); K64.0 First degree hemorrhoids; R10.30 Lower abdominal pain, unspecified; R19.4 Change in bowel habit; Z79.899 Other long term (current) drug therapy; Z88.8 Allergy status to other drugs, medicaments and biological substances; Z90.711 Acquired absence of uterus with remaining cervical stump; F17.210 Nicotine dependence, cigarettes, uncomplicated

== ENCOUNTER 2021-04-13 17:57 | Emergency (ER) | payer OTHER ==
[~2021-04-13 17:57] MED LIST changes: -LIDOCAINE 2% 100MG/5ML SDV (FOR ANES.) As Ordered ONE; -NS 1,000 ML IV ONE; -propofoL 200 MG/20 ML VIAL As Ordered ONE
[2021-04-13 18:17] VITALS: BP 137/72
[2021-04-13] MEDS ORDERED: NS 500 ML IV ONE (18:40)
[2021-04-13] MEDS ORDERED: ACETAMINOPHEN 325 MG TAB PO ONE (19:00)
[2021-04-13 19:05] LABS: BASO % 0.6 % (0.0-1.0); EOS # 0.2 10^3/uL (0.0-0.5); EOS % 3.9 % (0.0-3.0); HEMATOCRIT 36.2 % (36.0-47.0); HEMOGLOBIN 12.3 g/dl (12.0-15.5); LYMPH # 1.6 10^3/uL (1.5-5.0); LYMPH % 25.6 % (24.0-44.0); MEAN CORPUSCULAR HEMOGLOBIN 31.4 pg (27.0-33.0); MEAN CORPUSCULAR VOLUME 92.3 fl (80.0-96.0); MONO # 0.7 10^3/uL (0.0-0.8); MONO % 10.9 % (2.0-8.0); NEUTROPHILS # 3.6 10^3/uL (1.5-8.5); NEUTROPHILS % 58.5 % (36.0-66.0); PLATELET COUNT, AUTOMATED 151 10^3/uL (150-450); RED BLOOD COUNT 3.92 10^6/uL (4.00-5.40); WHITE BLOOD COUNT 6.2 10^3/uL (4.0-10.0)
[2021-04-13 19:24] LABS: ERYTHROCYTE SEDIMENTATION RATE 3 mm/hr (0-20)
--- NOTE | 2021-04-13 19:34 | REP ---
INDICATION: CHEST PAIN. COMPARISON: PA and lateral chest, 06/12/2012. TECHNIQUE: Upright PA and lateral chest images were obtained. FINDINGS: The lungs are clear. The heart borders mediastinum and pulmonary vascular pattern normal. The upper abdominal bowel gas pattern is normal. There are no bony abnormalities of the chest. IMPRESSION: No evidence of acute cardiopulmonary pathology. <Electronically signed by Naun Quinn > 04/13/[id number]
[2021-04-13 19:35] LABS: ALBUMIN 3.6 GM/DL (3.2-5.2); ALT/SGPT 29 U/L (12-78); BILIRUBIN,DIRECT 0.2 MG/DL (0.0-0.2); BILIRUBIN,TOTAL 0.7 MG/DL (0.2-1.0); C REACTIVE PROTEIN QUANTITATIV < 0.30 MG/DL (0.00-0.30); FERRITIN 34 NG/ML (8-252); FREE T4 1.13 NG/DL (0.76-1.46); IRON (FE) 69 UG/DL (50-170); LIPASE 68 U/L (73-393); PERCENT SATURATION 28.2 % (13.2-45.0); THYROID STIMULATING HORMONE 0.893 uIU/ML (0.358-3.740); TOTAL IRON BINDING CAPACITY 245 UG/DL (250-450); TOTAL PROTEIN 6.2 GM/DL (6.4-8.2)
--- OUTSIDE RECORDS SUMMARY | 2021-04-13 19:38 | CCD ---
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 If you continue you may have access to information: Regarding HIV / AIDS; Provided by facilities licensed or operated by the [facility] Office of Mental Health; or Provided by the [facility] Office for People With Developmental Disabilities. If such information is present, then the following [facility] mandated warning applies: This information has been [...] law may result in a fine or mcc sentence or both. A general authorization for the release of medical or other information is NOT sufficient authorization for further disc losure. Allergies and Adverse Reactions Type Description Substance Reaction Status Data Source(s ) Drug Allergy NKDA NKDA [facility] ([facility]) Family History Family Member Name Family Member Gender Family Member Status Date o f Status Description Data Source(s) Unknown Male Problem [facility] ([facility]) Unknown Unknown Problem [facility] ([facility]) maternal grandmother Unknown Unknown Problem [facility] ([facility], ) Unknown Male Problem [facility] ([facility]) Encounters Encounter Providers Location Date Indications Data Source(s ) Outpatient 03/10/2021 06:39:39 PM EDT - 021 08:08:18 PM EDT [facility] ([facility]) Outpatient Attender: RAVEN Elena/Kimberlyn/Adriel todd/Antelmo 01/23/2021 10:00:00 AM EDT [facility] ([facility] Outpatient 01/08/2021 01:33:25 PM EDT - 021 01:38:36 PM EDT [facility] ([facility]) Outpatient Attender: Hermilo Gloria PA-C 11/25/2020 04:16:49 PM EDT - 11/25/2020 06:13:05 PM EDT [facility] 10/30/2020 01:19:35 PM EDT - 021 01:23:38 PM EDT [facility] ([facility]) Outpatient Attender: Radha SORTO [facility] 10/04/2020 01:20:00 PM EDT [facility] ([facility]) Outpatient Attender: Abena Donovan MD 0 09/25/2020 08:43:29 AM EDT - 09/25/2020 09:11:35 AM EDT [facility] ([facility]) Outpatient Attender: RADHA newman 09/13/2020 04:00:00 PM EDT [facility] ([facility]) Outpatient 09/11/2020 02:06:22 PM EDT - 021 02:08:58 PM EDT [facility] ([facility]) Outpatient Attender: Radha SORTO [facility] 09/05/2020 03:00:00 PM EDT MED[facility] ([facility]) Outpatient Attender: Raúl SORTO [facility] [place] 08/16/2020 12:40:00 PM EDT [facility] ([facility]) Outpatient Attender: Radha SORTO [facility] 03/13/2020 11:00:00 AM EDT [facility] ([facility]) Medications Medication Brand Name Start Date Product Form Dose Route Admi nistrative Instructions Pharmacy Instructions Status Indications Reaction Description Data Source(s) 5 mg 03/12/2021 12:00:00 AM EDT tablet,delayed release (DR/EC) 4 TAKE FOUR TABLETS BY MOUTH TOGETHER PER BOWEL PREP INSTRUCTONS TAKE FOUR TABLETS BY MOUTH TOGETHER PER BOWEL PREP INSTRUCTONS SOLD: 03/12/2021 [facility] POLYETHYLENE GLYCOL 3350 805356 MG / Pot assium Chloride 1480 MG / Sodium Bicarbonate 5720 MG / Sodium Chloride 76105 MG Powder for Oral Solution SODIUM CHLORIDE/NAHCO3/KCL/PEG 03/12/2021 12:00:00 AM EDT recon soln 4000 DRINK THE LIQUID PER THE PRE-PROCEDURE INSTUCTIONS DRINK THE LIQUID PER THE PRE- PROCEDURE INSTUCTIONS SOLD: 03/12/2021 [facility] zolmitriptan 2.5 MG Oral Tablet Zolmitriptan 02/06/2021 12:00:00 AM E DT ORAL active [facility] ( [facility]) sennosides, CORRECTION 8.6 MG Oral Tablet Senna 01/23/2021 12:00:00 AM EDT ORAL active MEDENT ([facility], ) POLYETHYLENE GLYCOL 3350 142 MG/ML Oral Solution [Miralax] M iralax 01/23/2021 12:00:00 AM EDT active M EDENT ([facility], ) 8.6 mg 01/23/2021 12:00:00 AM EDT tablet 60 TAKE TWO TABLETS BY MOUTH EVERY DAY AT BEDTIME TAKE TWO TABLETS BY MOUTH EVERY DAY AT BEDTIME SOLD: 021 [facility] 17 gram/dose 01/23/2021 12:00:00 AM [...] 09/24/2020 12:00:00 AM EDT ORAL active MEDENT ([facility]) No Active Medications 09/13/2020 12:00:00 AM EDT completed MED[facility] ([facility]) 100 mg 09/11/2020 [...] 09/05/2020 12:00:00 AM EDT ORAL completed MEDENT ([facility]) Chantix Starting Month Apolinar Chantix Starting Month Apolinar 2020 12:00:00 AM EDT completed MED[facility] ([facility]) Reyvow Reyvow 08/16/2020 12:00:00 AM EDT completed MEDENT ([facility]) Medrol Medrol 03/28/2020 12:00:00 AM EDT active MEDENT ([facility]) 20 % 03/14/2020 12:00:00 AM EDT solution [...] 12:00:00 A M EDT ORAL active MEDENT ([facility]) Insurance Providers Payer name Policy type / Coverage type Policy ID Covered constitution party ID Covered constitution party's relationship to donald Policy Donald Plan Information [facility] Maintenance [facility] ([facility]) [id number] Self [id number] [facility] Maintenance [facility] ([facility]) [id number] Self [id number] [facility] Maintenance Organization (O) [id number] Self [id number] [facility] Maintenance Organization (O) [id number] Self [id number] [facility] Health Maintenance Organization (HMO) [id number] Self [id number] [facility] Maintenance Organization (O) [id number] Self [id number] [facility] Maintenance Organization (O) [id number] Self [id number] [facility] Health Maintenance Organization (HMO) [id number] Self [id number] [facility] Maintenance Organization (O) [id number] Self [id number] [facility] Maintenance Organization (O) [id number] Self [id number] [facility] Maintenance Organization (O) [id number] Self [id number] [employer] COMMUNITY PLAN MCDHMO [id number] SP [id number] [employer] COMMUNITY PLAN MCDHMO [id number] SP [id number] [employer] COMMUNITY PLAN MCDHMO [id number] SP [id number] [employer] COMMUNITY PLAN MCDHMO [id number] [facility] I [id number] Self [id number] [facility] I [id number] Self [id number] [facility] [employer]. [id number] Self [id number] [facility] [employer] Co. [id number] Self [id number] [facility] Community Plan Commercial [id number] [id number] Self [id number] [facility] Plan Commercial [id number] [id number] Self [id number] [facility] Plan Commercial [id number] [id number] Self [id number] [facility] Plan Commercial [id number] [id number] Self [id number] [facility] Plan Commercial [id number] [id number] Self [id number] ANSI-Medicaid [id number] ANSI-Medicaid [id number] ANSI-Medicaid [id number] ANSI-Medicaid [id number] ANSI-Medicaid [id number] [facility] Community Plan Commercial [id number] Self [id number] [facility] [id number] ANSI-Medicaid [id number] ANSI-Medicaid [id number] ANSI-Medicaid [id number] [facility] [id number] [facility] Plan Commercial [id number] [id number] Self [id number] [facility] Plan Commercial [id number] [id number] Self [id number] [facility] Plan Commercial [id number] [id number] Self [id number] [facility] Health Maintenance Organization ([facility]) [id number] Self [id number] [facility] Health Maintenance Organization (O) [id number] Self [id number] BLUE CROSS AGGARW[employer] PLAN [id number] SP [id number] HMO BLUE [id number] SP [id number] [facility] COMMUNITY PLAN MCDO [id number] SP [id number] [facility] O [id number] S [id number] [facility] COMMUNITY PLAN XIX [id number] 18 [id number] [facility] Community Plan Commercial [id number] Self [id number] [facility] Community Plan Commercial [id number] [id number] Self [id number] [facility] Community Plan Commercial [id number] [id number] Self [id number] [facility] Community Plan Commercial [id number] [id number] Self [id number] [facility] Community Plan Commercial [id number] [id number] Self [id number] [facility] COMMUNITY PLAN MCDO [id number] SP [id number] [facility] COMMUNITY PLAN XIX [id number] [employer] MEDICARE COMPLETE - O/P [id number] 18 [id number] [facility] Community Plan Commercial [id number] [id number] Self [id number] [facility] Community Plan Commercial [id number] [id number] Self [id number] [facility] Community Plan Commercial [id number] [id number] Self [id number] [facility] Community Plan Commercial [id number] [id number] Self [id number] [facility] Commercial [id number] [id number] Self [id number] [facility] [id number] S [id number] [facility] Community [facility] Commercial [id number] Self [id number] [facility] Health Maintenance Organization (HMO) [id number] Self [id number] Problems, Conditions, and Diagnoses No Information Surgeries/Procedures Procedure Description Date Indications Data Source(s) Chemodenervation Of Extremity Muscles Innervated By Facial N erves 02/06/2021 12:00:00 AM EDT [facility] ([facility]) OFFICE OUTPATIENT NEW 45 MINUTES 01/23/2021 12:00:00 A M EDT [facility] ([facility], ) Chemodenervation Of Extremity Muscles Innervated By Facial N erves 11/07/2020 12:00:00 AM EDT [facility] ([facility]) OFFICE OUTPATIENT VISIT 25 MINUTES 08/16/2020 12:00:00 AM EDT MED[facility] ([facility]) Chemodenervation Of Extremity Muscles Innervated By Facial N erves 07/05/2020 12:00:00 AM EST [facility] ([facility]) Chemodenervation Of Extremity Muscles Innervated By Facial N erves 03/28/2020 12:00:00 AM EDT [facility] ([facility]) Results ID Date Data Source [id number] 03/10/2021 08:15:00 PM EDT [facility] Name Value Range Interpretation Code Description Data [place] rce(s) Supporting Document(s) SARS-CoV-2 RNA Resp Ql CONNER+probe NOT DETECTED [facility] was ordered by [facility] and reported by [facility]. ID Date Data Source [id number] 10/11/2020 12:00:00 AM EDT [facility] Name Value Range Interpretation Code Description Data [place] rce(s) Supporting Document(s) SARS-CoV2 Rapid Antigen Negative [facility] This lab was ordered by [facility] and reported by [facility]. ID Date Data Source [id number] 09/26/2020 12:33:00 PM EDT [facility] Name Value Range Interpretation Code Description Data [place] rce(s) Supporting Document(s) COVID-19 RT-PCR UTILIZATION MANAGEMENT NURSE SWAB Not Detected Not Detected [facility] A not detected (negative) test result [...] developed and its performance characteristics determined by [employer] and verified at [employer]. It has not been cleared or approved by the U.S. Food and Drug Administration for diagnostic use. This test has been authorized by FDA under an EUA for use by authorized laboratories. Results should be used in conjunction with clinical findings, and should not form the sole basis for a diagnosis or treatment decision. Methods: SARS-CoV-2 Multiplex RT-PCR Assay ID Date Data Source [id number] 09/25/2020 09:00:00 AM EDT [facility] Name Value Range Interpretation Code Description Data [place] rce(s) Supporting Document(s) SARS-CoV-2 (COVID-19) N gene [Presence] in Respiratory specimen by CONNER with probe detection NEGATIVE [facility] This lab was ordered by [facility] and reported by [email or web address]. ID Date Data Source [id number] 08/05/2020 12:00:00 AM EST [facility] Name Value Range Interpretation Code Description Data [place] rce(s) Supporting Document(s) SARS-CoV2 Rapid Antigen Negative [facility] This lab was ordered by [facility] and reported by [facility]. Procedure Social History No Information Vital Signs ID Date Data Source UNK Name Value Range Interpretation Code Description Data Source(s) Systolic blood pressure 96 mm[Hg] 96 mm[Hg] [facility] ([facility]) Diastolic blood pressure 54 mm[Hg] 54 mm[Hg] [facility] ([facility]) Body height 66 [in_i] 66 [in_i] [facility] ([facility]) 5'6" Body weight 120.00 [lb_av] 120.00 [lb_av] [facility] Body mass index (BMI) [Ratio] 19.4 kg/m2 19.4 k g/m2 [facility] ([facility]) [place] body weight 130 [lb_av] 130 [lb_av] [facility] ([facility]) Body weight 54.432 kg 54.432 kg [facility] ([facility]) Body surface area Derived from formula 1.61 m2 1.61 m2 [facility] ([facility]) Diastolic blood pressure 74 mm[Hg] 74 mm[Hg] [facility] ([facility]) Systolic blood pressure 116 mm[Hg] 116 mm[Hg] [facility] ([facility]) Body height 65.4 [in_i] 65.4 [in_i] [facility] ([facility]) 5'5.40" Body weight 125.00 [lb_av] 125.00 [lb_av] [facility] T ([facility]) Body mass index (BMI) [Ratio] 20.5 kg/m2 20.5 k g/m2 [facility] ([facility]) Heart rate 69 /min 69 /min [facility] ([facility]) Respiratory rate 18 /min 18 /min [facility] ( [facility]) Body temperature 98.2 [degF] 98.2 [degF] [facility] ([facility]) Oxygen saturation in Arterial blood by Pulse oximetry 99 % 99 % [facility] ([facility]) [place] body weight 125 [lb_av] 125 [lb_av] MEDEN T ([facility]) Diastolic blood pressure 83 mm[Hg] 83 mm[Hg] [facility] ([facility]) Heart rate 79 /min 79 /min MED[facility] ([facility]) Respiratory rate 14 /min 14 /min MED[facility] ( [facility]) Oxygen saturation in Arterial blood by Pulse oximetry 100 % 100 % [facility] ([facility]) Body weight 124.00 [lb_av] 124.00 [lb_av] MEDEN T ([facility]) Body height 65 [in_i] 65 [in_i] MED[facility] ([facility]) 5'5" Body mass index (BMI) [Ratio] 20.6 kg/m2 20.6 k g/m2 MED[facility] ([facility]) Systolic blood pressure 112 mm[Hg] 112 mm[Hg] M EDENT ([facility]) Body temperature 98.4 [degF] 98.4 [degF] [facility] ([facility]) [place] body weight 125 [lb_av] 125 [lb_av] MEDEN T ([facility]) Systolic blood pressure 116 mm[Hg] 116 mm[Hg] M EDENT ([facility]) Diastolic blood pressure 78 mm[Hg] 78 mm[Hg] [facility] ([facility]) Body height 65.4 [in_i] 65.4 [in_i] [facility] ([facility]) 5'5.40" Body weight 124.00 [lb_av] 124.00 [lb_av] MEDEN T ([facility]) Body mass index (BMI) [Ratio] 20.4 kg/m2 20.4 k g/m2 [facility] ([facility]) Heart rate 89 /min 89 /min [facility] ([facility]) Respiratory rate 18 /min 18 /min [facility] ( [facility]) Body temperature 98.3 [degF] 98.3 [degF] [facility] ([facility]) Oxygen saturation in Arterial blood by Pulse oximetry 99 % 99 % [facility] ([facility]) Systolic blood pressure 104 mm[Hg] 104 mm[Hg] M EDENT ([facility]) Diastolic blood pressure 68 mm[Hg] 68 mm[Hg] [facility] ([facility]) Body height 65.4 [in_i] 65.4 [in_i] [facility] ([facility]) 5'5.40" Body weight 121.38 [lb_av] 121.38 [lb_av] MEDEN T ([facility]) Body mass index (BMI) [Ratio] 19.9 kg/m2 19.9 k g/m2 [facility] ([facility]) Heart rate 85 /min 85 /min [facility] ([facility]) Respiratory rate 18 /min 18 /min [facility] ( [facility]) Body temperature 97.8 [degF] 97.8 [degF] [facility] ([facility]) Oxygen saturation in Arterial blood by Pulse oximetry 99 % 99 % [facility] ([facility]) [place] body weight 125 [lb_av] 125 [lb_av] MEDEN T ([facility])
--- NOTE | 2021-04-13 20:20 | ECGEPIP ---
[facility] - ED Test Date: 2021-04-13 Pat Name: TIMOTEO TORRES Department: Room: - Gender: Female Recovery Assistant: Vinayak JOE : 1990 Requested By: KARYNA COSME PA-C Order Number: [id number] Reading MD: Brandon Sandoval Measurements Intervals [place] Rate: 70 P: 61 PA: 162 QRS: 72 QRSD: 104 T: 30 QT: 412 QTc: 444 Interpretive Statements Normal sinus rhythm Low QRS complex voltage in the limb leads Incomplete right bundle branch block Similar to tracing done 03-22-15 Electronically Signed on 04-13-2021 20:19:37 EST by Brandon Sandoval
[2021-04-13 20:39] LABS: BLOOD UREA NITROGEN 16 MG/DL (7-18); CALCIUM LEVEL 8.9 MG/DL (8.5-10.1); CARBON DIOXIDE LEVEL 26 MEQ/L (21-32); CHLORIDE LEVEL 111 MEQ/L (98-107); CREATININE FOR GFR 0.64 MG/DL (0.55-1.30); GLOMERULAR FILTRATION RATE > 60.0 (>60); GLUCOSE, FASTING 93 MG/DL (70-100); POTASSIUM SERUM 3.6 MEQ/L (3.5-5.1); SODIUM LEVEL 142 MEQ/L (136-145)
[2021-04-13] MEDS ORDERED: ISOVUE-370 76% 100ML VIAL As Ordered ONE (20:44)
--- NOTE | 2021-04-13 21:26 | REPVR ---
PROCEDURE INFORMATION: Exam: CTA Chest With Contrast Exam date and time: 04/13/2021 8:46 PM Age: 30 years old Clinical indication: Other: Right cp TECHNIQUE: Imaging protocol: Computed tomographic angiography of the chest with contrast. 3D rendering (Not supervised by radiologist): MIP and/or 3D reconstructed images were created by the technologist. Radiation optimization: All CT scans at this facility use at least one of these dose optimization techniques: automated exposure control; mA and/or kV adjustment per patient size (includes targeted exams where dose is matched to clinical indication); or iterative reconstruction. Contrast material: ISOVUE 370; Contrast volume: 75 ml; Contrast route: INTRAVENOUS (IV); COMPARISON: CR Chest, 2 view PA, Lat 04/13/2021 6:48 PM FINDINGS: Pulmonary arteries: No focal pulmonary artery filling defect to suggest acute pulmonary embolus. Pulmonary vascular/interstitial pattern does not suggest active pulmonary edema. Aorta: No thoracic aortic aneurysm or dissection. Thyroid: Probable right lobe thyroid nodule on the order of 11 mm size. Lungs: No suspicious lung mass or air space process. No central endobronchial lesion. Pleural spaces: No pleural effusion or pneumothorax. Heart: No overt cardiac enlargement or abnormal volume of pericardial fluid. Mediastinal space: Residual thymic tissue is present in the anterior mediastinum. Lymph nodes: No enlarged mediastinal lymph nodes. Bones/joints: Bony structures show no acute fracture or destructive process. Soft tissues: No asymmetric abnormality of the extrathoracic soft tissues. IMPRESSION: 1. No evidence of acute pulmonary embolus. 2. No other acute or concerning focal intrathoracic abnormality. 3. Hypodense right thyroid nodule measuring 11 mm in size approximately. This can be followed with outpatient sonography. COMMENTS: Consistent with the [place] [employer]'s Incidental Findings Committee white paper (J Am Elaine Radiol 2015): In patients under 35 years old with an incidental thyroid nodule equal to or greater than [address], MRI or extrathyroidal US, further evaluation with dedicated thyroid US is recommended for patients with normal life expectancy and without comorbidities. For smaller nodules without suspicious features, no further evaluation or follow up is recommended. Electronically signed by: Eulalio Jaramillo On 04/13/2021 21:25:29 PM
[2021-04-14 10:36] LABS: VITAMIN B12 LEVEL 429 PG/ML
[2021-04-14 10:37] LABS: FOLATE 6.2 NG/ML
== END 2021-04-13 21:18 | disposition left against medical advice (07) ==
LOC: EDBD 17:57 → M ED 17:57
DX: R07.9 Chest pain, unspecified (principal); I45.19 Other right bundle-branch block; E04.1 Nontoxic single thyroid nodule; Z53.9 Procedure and treatment not carried out, unspecified reason; R06.02 Shortness of breath; F17.200 Nicotine dependence, unspecified, uncomplicated; Z88.8 Allergy status to other drugs, medicaments and biological substances
CPT/HCPCS: 71046; 71275; 80048; 80076; 82607; 82728; 82746; 83550; 83690; 84439; 84443; 85025; 85379; 85652; 86140; 93005; 96360; 99284; Q9967

== ENCOUNTER → 2021-04-14 | Outpatient (REF) | payer OTHER | LOC: M LAB REF 17:59 | PROVIDERS: ATTEND Physician Assistant | DX: R09.81 Nasal congestion (principal) ==

== ENCOUNTER → 2021-09-01 | Outpatient (CLI) | payer OTHER ==
[~2021-09-01] MED LIST changes: -CITA10TA5; +CITA10TA7; -FLUC150T; +FLUC150T9
== END ==
LOC: M PLAIMG 12:19
PROVIDERS: ATTEND Physician Assistant
DX: I67.1 Cerebral aneurysm, nonruptured (principal)

== ENCOUNTER 2022-02-20 10:07 | Emergency (ER) | payer OTHER ==
[~2022-02-20] VITALS: Ht 167.6 cm; Wt 61.3 kg
[2022-02-20 10:08] VITALS: BP 105/63
[2022-02-20] MEDS ORDERED: TETRACAINE 0.5% OPHTH SOLN 4ML OS ONE (13:40)
[2022-02-20] MEDS ORDERED: FLUORESCEIN OPHTH 1 MG STRIP OS ONE (13:40)
== END 2022-02-20 14:33 | disposition left against medical advice (07) ==
LOC: M ED 10:07
DX: H11.32 Conjunctival hemorrhage, left eye (principal); H57.12 Ocular pain, left eye; Z53.9 Procedure and treatment not carried out, unspecified reason; F17.200 Nicotine dependence, unspecified, uncomplicated; Z88.8 Allergy status to other drugs, medicaments and biological substances

== ENCOUNTER → 2023-03-28 | Outpatient (REF) | payer OTHER ==
[2023-03-28 18:53] LABS: RSV AMPLIFICATION NEGATIVE (NEGATIVE)
== END ==
LOC: M LAB REF 17:19
PROVIDERS: ATTEND Physician Assistant
DX: J06.9 Acute upper respiratory infection, unspecified (principal)

== ENCOUNTER → 2023-03-29 | Outpatient (REF) | payer OTHER | LOC: M LAB REF 16:09 | PROVIDERS: ATTEND Physician Assistant | DX: R52 Pain, unspecified (principal) ==

== ENCOUNTER → 2023-06-04 | Outpatient (CLI) | payer OTHER | LOC: M PLARAD 08:39 | PROVIDERS: ATTEND Physician Assistant | DX: Z86.79 Personal history of other diseases of the circulatory system (principal) ==

== ENCOUNTER → 2023-07-07 | Outpatient (REF) | payer OTHER | LOC: M LAB REF 18:04 | PROVIDERS: ATTEND Ophthalmology | DX: D23.112 Other benign neoplasm of skin of right lower eyelid, including canthus (principal) ==

== ENCOUNTER → 2023-07-28 | Outpatient (CLI) | payer OTHER ==
[2023-07-28 13:40] LABS: BLOOD UREA NITROGEN 13 MG/DL (9-23); CALCIUM LEVEL 9.1 MG/DL (8.5-10.1); CARBON DIOXIDE LEVEL 30 MMOL/L (20-31); CHLORIDE LEVEL 108 MMOL/L (98-107); CREATININE FOR GFR 0.61 MG/DL (0.55-1.30); GLOMERULAR FILTRATION RATE > 60.0 (>60); GLUCOSE, FASTING 78 MG/DL (60-100); POTASSIUM SERUM 4.1 MMOL/L (3.5-5.1); SODIUM LEVEL 142 MMOL/L (136-145)
== END ==
LOC: M LAB 12:39
PROVIDERS: ATTEND Family Medicine
DX: L70.0 Acne vulgaris (principal)

== ENCOUNTER → 2024-03-17 | Outpatient (REF) | payer OTHER | LOC: M SFHCDERM 17:23 | PROVIDERS: ATTEND Physician Assistant | DX: D22.9 Melanocytic nevi, unspecified (principal) ==

== ENCOUNTER → 2024-06-23 | Outpatient (CLI) | payer OTHER ==
[2024-06-23 12:48] LABS: BASO # 0.1 10^3/uL (0.0-0.2); EOS # 0.6 10^3/uL (0.0-0.5); EOS % 9.2 % (0.0-3.0); HEMOGLOBIN 14.4 g/dl (12.0-15.5); LYMPH # 2.1 10^3/uL (1.5-5.0); LYMPH % 33.7 % (24.0-44.0); MEAN CORPUSCULAR HGB CONC 35.1 g/dl (32.0-36.5); MONO # 0.8 10^3/uL (0.0-0.8); MONO % 12.2 % (2.0-8.0); NEUTROPHILS # 2.7 10^3/uL (1.5-8.5); NEUTROPHILS % 43.6 % (36.0-66.0); PLATELET COUNT, AUTOMATED 184 10^3/uL (150-450); RED BLOOD COUNT 4.36 10^6/uL (4.00-5.40); WHITE BLOOD COUNT 6.2 10^3/uL (4.0-10.0)
[2024-06-23 12:52] LABS: ERYTHROCYTE SEDIMENTATION RATE 2 mm/hr (0-20)
[2024-06-23 13:58] LABS: CK-MB VALUE MASS < 1.0 NG/ML (<3.6)
[2024-06-23 14:01] LABS: ALBUMIN 4.1 G/DL (3.2-5.2); ALKALINE PHOSPHATASE 57 U/L (35-104); ALT/SGPT 21 U/L (7.0-40); AST/SGOT < 8 U/L (<34); BILIRUBIN,TOTAL 1.2 MG/DL (0.3-1.2); BLOOD UREA NITROGEN 21 MG/DL (9-23); C REACTIVE PROTEIN QUANTITATIV < 0.50 MG/DL (<1.0); CALCIUM LEVEL 9.4 MG/DL (8.5-10.1); CARBON DIOXIDE LEVEL 28 MMOL/L (20-31); CHLORIDE LEVEL 110 MMOL/L (98-107); CPK CREATINE PHOSPHOKINASE 48 U/L (34-145); GLOMERULAR FILTRATION RATE > 60.0 (>60); GLUCOSE, FASTING 89 MG/DL (60-100); IRON (FE) 124 UG/DL (50-170); MAGNESIUM LEVEL 1.9 MG/DL (1.8-2.4); MB/CK RELATIVE INDEX 2.08 (< OR =4); POTASSIUM SERUM 4.3 MMOL/L (3.5-5.1); SODIUM LEVEL 142 MMOL/L (136-145); THYROID STIMULATING HORMONE 0.702 uIU/ML (0.55-4.78)
[2024-06-23 14:02] LABS: FERRITIN 32.1 NG/ML (7.3-270.7)
[2024-06-23 14:03] LABS: FREE T4 1.11 NG/DL (0.89-1.76)
[2024-06-26 15:52] LABS: LYME TOTAL ANTIBODY CIA <= 0.90 Index (<=0.90)
== END ==
LOC: M PLALAB 10:28
PROVIDERS: ATTEND Family Medicine
DX: R07.9 Chest pain, unspecified (principal)

== ENCOUNTER → 2025-04-18 | Outpatient (CLI) | payer OTHER ==
[~2025-04-18] MED LIST changes: +ISOVUE-370 76% 100 ML VIAL As Ordered ONE
== END ==
LOC: M RAD 17:10
PROVIDERS: ATTEND Family Medicine
DX: R10.84 Generalized abdominal pain (principal); R11.0 Nausea; N83.201 Unspecified ovarian cyst, right side
CPT/HCPCS: 74177; Q9967